=== PATIENT | female | born 1975 | race African-American/Black ===

== ENCOUNTER → 2016-07-08 | Outpatient (REF) | payer OTHER, SELFPAY ==
[~2016-07-08] MED LIST: ZANTTAB PO
== END ==
LOC: M LAB REF 14:04
PROVIDERS: ATTEND Family Medicine Addiction Medicine
DX: Z01.419 Encounter for gynecological examination (general) (routine) without abnormal findings (principal); R87.610 Atypical squamous cells of undetermined significance on cytologic smear of cervix (ASC-US)
CPT/HCPCS: 87491; 87591; G0123

== ENCOUNTER → 2016-10-21 | Outpatient (REF) | payer OTHER ==
[2016-10-21 14:01] LABS: ALBUMIN 3.9 GM/DL (3.2-5.2); ALBUMIN/GLOBULIN RATIO 0.93 (1.00-1.93); ALKALINE PHOSPHATASE 61 U/L (45-117); ALT/SGPT 18 U/L (12-78); ANION GAP 8 MEQ/L (8-16); AST/SGOT 13 U/L (15-37); BILIRUBIN,TOTAL 0.6 MG/DL (0.2-1.0); BLOOD UREA NITROGEN 13 MG/DL (7-18); CALCIUM LEVEL 8.5 MG/DL (8.5-10.1); CARBON DIOXIDE LEVEL 28 MEQ/L (21-32); CHLORIDE LEVEL 106 MEQ/L (98-107); CHOLESTEROL LEVEL 217 MG/DL (<200); GLOMERULAR FILTRATION RATE > 60.0 (>60); GLUCOSE, FASTING 87 MG/DL (70-105); SODIUM LEVEL 142 MEQ/L (136-145); TOTAL PROTEIN 8.1 GM/DL (6.4-8.2); TRIGLYCERIDES LEVEL 66 MG/DL (<150)
== END ==
LOC: M LAB REF 13:15
PROVIDERS: ATTEND Family Medicine Addiction Medicine
DX: I10 Essential (primary) hypertension (principal); Z23 Encounter for immunization

== ENCOUNTER → 2018-06-07 | Outpatient (CLI) | payer OTHER ==
--- NOTE | 2018-06-07 12:04 | REP ---
RIGHT FINGERS, FOUR VIEWS: HISTORY: Contusion. There is no acute fracture or dislocation. The joint spaces are normal in appearance. IMPRESSION: There is no acute fracture or dislocation. Electronically Signed by Kwame Martell MD 06/07/2018 12:12 P
== END ==
LOC: M WUC 09:06
PROVIDERS: ATTEND Physician Assistant
DX: S60.131A Contusion of right middle finger with damage to nail, initial encounter (principal); X58.XXXA Exposure to other specified factors, initial encounter; Y92.9 Unspecified place or not applicable

== ENCOUNTER → 2018-11-01 | Outpatient (REF) | payer OTHER ==
[~2018-11-01] MED LIST changes: +ZANT150T40 PO; -ZANTTAB PO
[2018-11-01 16:53] LABS: ALBUMIN 3.8 GM/DL (3.2-5.2); ALT/SGPT 21 U/L (12-78); BILIRUBIN,TOTAL 0.4 MG/DL (0.2-1.0); BLOOD UREA NITROGEN 18 MG/DL (7-18); CALCIUM LEVEL 8.8 MG/DL (8.5-10.1); CARBON DIOXIDE LEVEL 27 MEQ/L (21-32); CHLORIDE LEVEL 107 MEQ/L (98-107); CHOLESTEROL LEVEL 220 MG/DL (<200); CHOLESTEROL RISK RATIO 2.716 (<5); CREATININE FOR GFR 0.82 MG/DL (0.55-1.30); GLOMERULAR FILTRATION RATE > 60.0 (>58); GLUCOSE, FASTING 91 MG/DL (70-100); HDL CHOLESTEROL 81 MG/DL (>40); LDL CHOLESTEROL 129 MG/DL (<100); NON-HDL-C 139 MG/DL; POTASSIUM SERUM 3.9 MEQ/L (3.5-5.1); SODIUM LEVEL 138 MEQ/L (136-145); TOTAL PROTEIN 7.8 GM/DL (6.4-8.2); TRIGLYCERIDES LEVEL 49 MG/DL (<150)
[2018-11-01 17:15] LABS: TOTAL 25(OH) VITAMIN D 16.4 NG/ML (30.0-100.0)
[2018-11-01 17:33] LABS: BASO % 0.2 % (0.0-1.0); EOS # 0.2 10^3/uL (0.0-0.50); EOS % 4.5 % (0.0-3.0); HEMATOCRIT 39.8 % (36.0-47.0); HEMOGLOBIN 12.3 g/dl (12.0-15.5); LYMPH # 1.7 10^3/uL (1.5-4.5); LYMPH % 33.3 % (24.0-44.0); MEAN CORPUSCULAR HGB CONC 30.9 g/dl (32.0-36.5); MEAN CORPUSCULAR VOLUME 87.5 fl (80.0-96.0); MONO # 0.5 10^3/uL (0.0-0.8); MONO % 9.8 % (0.0-5.0); NEUTROPHILS # 2.7 10^3/uL (1.8-7.7); NEUTROPHILS % 51.8 % (36.0-66.0); PLATELET COUNT, AUTOMATED 325 10^3/uL (150-450); RED BLOOD COUNT 4.55 10^6/uL (4.00-5.40); WHITE BLOOD COUNT 5.1 10^3/uL (4.0-10.0)
== END ==
LOC: M LAB REF 12:28
PROVIDERS: ATTEND Nurse Practitioner Family
DX: Z00.01 Encounter for general adult medical examination with abnormal findings (principal)

== ENCOUNTER → 2019-02-22 | Outpatient (REF) | payer OTHER, MEDICAID ==
[2019-02-22 12:58] LABS: ALBUMIN 3.9 GM/DL (3.2-5.2); ALT/SGPT 19 U/L (12-78); BILIRUBIN,TOTAL 0.8 MG/DL (0.2-1.0); BLOOD UREA NITROGEN 10 MG/DL (7-18); CALCIUM LEVEL 9.3 MG/DL (8.5-10.1); CARBON DIOXIDE LEVEL 29 MEQ/L (21-32); CHLORIDE LEVEL 105 MEQ/L (98-107); CHOLESTEROL LEVEL 198 MG/DL (<200); CREATININE FOR GFR 0.82 MG/DL (0.55-1.30); GLOMERULAR FILTRATION RATE > 60.0 (>58); GLUCOSE, FASTING 89 MG/DL (70-100); HDL CHOLESTEROL 75 MG/DL (>40); LDL CHOLESTEROL 116 MG/DL (<100); NON-HDL-C 123 MG/DL; POTASSIUM SERUM 4.2 MEQ/L (3.5-5.1); SODIUM LEVEL 141 MEQ/L (136-145); TOTAL 25(OH) VITAMIN D 30.1 NG/ML (30.0-100.0); TOTAL PROTEIN 8.1 GM/DL (6.4-8.2); TRIGLYCERIDES LEVEL 35 MG/DL (<150)
[2019-02-22 13:14] LABS: HEMOGLOBIN A1c 5.8 %
== END ==
LOC: M LAB REF 12:07
PROVIDERS: ATTEND Nurse Practitioner Family
DX: Z00.01 Encounter for general adult medical examination with abnormal findings (principal); E55.9 Vitamin D deficiency, unspecified

== ENCOUNTER → 2019-05-04 | Outpatient (REF) | payer OTHER, MEDICAID | LOC: M LAB REF 13:10 | PROVIDERS: ATTEND Nurse Practitioner Family | DX: Z12.4 Encounter for screening for malignant neoplasm of cervix (principal) ==

== ENCOUNTER → 2019-11-16 | Outpatient (REF) | payer OTHER ==
[2019-11-17 19:22] LABS: AMORPHOUS SEDIMENT MODERATE (NEGATIVE); BACTERIA, URINE AUTO NEGATIVE (NEGATIVE); MUCUS, URINE LARGE (NEGATIVE); RBC, URINE AUTO 0 /HPF (0-3); SQUAMOUS EPITHELIAL CELL UR AU 0 /HPF (0-6); WBC, URINE AUTO 0 /HPF (0-3)
== END ==
LOC: M WUC 17:25
PROVIDERS: ATTEND Nurse Practitioner Family
DX: R30.0 Dysuria (principal)

== ENCOUNTER → 2020-05-09 | Outpatient (REF) | payer OTHER ==
[2020-05-09 17:10] LABS: BASO % 0.4 % (0.0-1.0); EOS # 0.2 10^3/uL (0.0-0.5); EOS % 1.5 % (0.0-3.0); HEMATOCRIT 41.4 % (36.0-47.0); HEMOGLOBIN 12.8 g/dl (12.0-15.5); LYMPH # 2.1 10^3/uL (1.5-5.0); LYMPH % 20.1 % (24.0-44.0); MEAN CORPUSCULAR HEMOGLOBIN 27.3 pg (27.0-33.0); MEAN CORPUSCULAR HGB CONC 30.9 g/dl (32.0-36.5); MEAN CORPUSCULAR VOLUME 88.3 fl (80.0-96.0); MONO # 0.9 10^3/uL (0.0-0.8); MONO % 8.4 % (2.0-8.0); NEUTROPHILS # 7.2 10^3/uL (1.5-8.5); NEUTROPHILS % 69.1 % (36.0-66.0); PLATELET COUNT, AUTOMATED 341 10^3/uL (150-450); RED BLOOD COUNT 4.69 10^6/uL (4.00-5.40); WHITE BLOOD COUNT 10.4 10^3/uL (4.0-10.0)
[2020-05-09 17:47] LABS: ALT/SGPT 26 U/L (12-78); BILIRUBIN,TOTAL 0.3 MG/DL (0.2-1.0); BLOOD UREA NITROGEN 10 MG/DL (7-18); CALCIUM LEVEL 9.4 MG/DL (8.5-10.1); CARBON DIOXIDE LEVEL 27 MEQ/L (21-32); CHLORIDE LEVEL 105 MEQ/L (98-107); CHOLESTEROL LEVEL 224 MG/DL (<200); CHOLESTEROL RISK RATIO 3.027 (<5); CREATININE FOR GFR 0.76 MG/DL (0.55-1.30); FREE T4 0.98 NG/DL (0.76-1.46); GLOMERULAR FILTRATION RATE > 60.0 (>58); GLUCOSE, FASTING 111 MG/DL (70-100); HCG, SERUM QUANTITATIVE 2396 MIU/ML; HDL CHOLESTEROL 74 MG/DL (>40); LDL CHOLESTEROL 142 MG/DL (<100); NON-HDL-C 150 MG/DL; POTASSIUM SERUM 4.7 MEQ/L (3.5-5.1); SODIUM LEVEL 137 MEQ/L (136-145); TOTAL 25(OH) VITAMIN D 19.4 NG/ML (30.0-100.0); TOTAL PROTEIN 8.1 GM/DL (6.4-8.2); TRIGLYCERIDES LEVEL 39 MG/DL (<150)
[2020-05-09 17:53] LABS: HEMOGLOBIN A1c 5.6 %
== END ==
LOC: M LAB REF 16:38
PROVIDERS: ATTEND Nurse Practitioner Family
DX: Z00.00 Encounter for general adult medical examination without abnormal findings (principal); Z33.1 Pregnant state, incidental; I10 Essential (primary) hypertension

== ENCOUNTER 2020-05-31 20:26 | Emergency (ER) | payer OTHER ==
[~2020-05-31] VITALS: Ht 165.1 cm; Wt 94.9 kg
[2020-05-31] MEDS ORDERED: NIFE10CA2 PO (20:41)
[2020-05-31] MEDS ORDERED: MM S100C PO (20:41)
[2020-05-31 21:29] LABS: BASO % 0.3 % (0.0-1.0); EOS # 0.1 10^3/uL (0.0-0.5); EOS % 1.3 % (0.0-3.0); HEMATOCRIT 39.7 % (36.0-47.0); HEMOGLOBIN 12.8 g/dl (12.0-15.5); LYMPH # 1.9 10^3/uL (1.5-5.0); LYMPH % 17.2 % (24.0-44.0); MEAN CORPUSCULAR HEMOGLOBIN 27.5 pg (27.0-33.0); MEAN CORPUSCULAR HGB CONC 32.2 g/dl (32.0-36.5); MEAN CORPUSCULAR VOLUME 85.4 fl (80.0-96.0); MONO % 9.2 % (2.0-8.0); NEUTROPHILS # 7.8 10^3/uL (1.5-8.5); NEUTROPHILS % 71.7 % (36.0-66.0); PLATELET COUNT, AUTOMATED 399 10^3/uL (150-450); RED BLOOD COUNT 4.65 10^6/uL (4.00-5.40); WHITE BLOOD COUNT 10.8 10^3/uL (4.0-10.0)
[2020-05-31] MEDS ORDERED: FAMOTIDINE INJ 20MG/2ML VIAL (S0028 PER 1) IVP ONE (21:35)
[2020-05-31] MEDS ORDERED: ONDANSETRON 4MG/2ML VIAL IV ONE (21:35)
[2020-05-31] MEDS ORDERED: NS 1,000 ML IV ONE (21:35)
[2020-05-31 22:16] LABS: ALBUMIN 3.8 GM/DL (3.2-5.2); BILIRUBIN,DIRECT 0.1 MG/DL (0.0-0.2); BILIRUBIN,TOTAL 0.3 MG/DL (0.2-1.0)
--- NOTE | 2020-05-31 22:29 | REPVR ---
PROCEDURE INFORMATION: Exam: US First Trimester, Transabdominal Exam date and time: 05/31/2020 9:58 PM Age: 44 years old Clinical indication: Lmp or gestational age (in weeks): 04/06/2020; Other: Abd pain; TECHNIQUE: Imaging protocol: Real-time transabdominal obstetrical ultrasound of the maternal pelvis and a first trimester , less than 14 weeks 0 days, with image documentation. COMPARISON: No relevant prior studies available. FINDINGS: Gestation: Gestational sac within the uterus with pole and yolk sac. Embryonic/ heart rate: heartbeat of 172 bpm. Placenta: Unremarkable. No subchorionic bleed. Amniotic fluid: Amniotic fluid is normal for gestational age. BIOMETRY: [place]-Rump length: The crown-rump length is 19 mm suggesting an age of 8 weeks 4 days. The EDC is 01/06/2021. MATERNAL: Uterus: Hypoechoic area in the left aspect of the uterine myometrium measuring 18 x 15 x 11 mm which may reflect a small fibroid. Cervix: Unremarkable. Right adnexa: The right ovary measures 4.3 x 2.2 x 2.8 cm and demonstrates arterial and venous blood flow. Left adnexa: The left ovary is not seen. Intraperitoneal space: No intraperitoneal free fluid. IMPRESSION: 1. Single live intrauterine fetus with an estimated age of 8 weeks 4 days. The EDC is 01/06/2021. 2. Question of small left uterine fibroid measuring 18 x 15 x 11 mm. Electronically signed by: Gurjit Perez On 05/31/2020 22:29:57 PM
[2020-05-31] MEDS ORDERED: SUCRALFATE 1 GM TAB PO ONE (22:40)
[2020-05-31] MEDS ORDERED: ONDA4TAB6 PO (23:58)
[2020-05-31] MEDS ORDERED: FAMO20TA PO (23:58)
[2020-05-31] MEDS ORDERED: SUCR1SS PO (23:58)
[2020-06-01 00:09] VITALS: BP 141/86
== END 2020-06-01 00:34 | disposition home or self-care (01) ==
LOC: M ED 20:26
DX: O99.611 Diseases of the digestive system complicating pregnancy, first trimester (principal); K21.9 Gastro-esophageal reflux disease without esophagitis; Z3A.08 8 weeks gestation of pregnancy
CPT/HCPCS: 76801; 80047; 80076; 81001; 83690; 84702; 85025; 87086; 93976; 96361; 96374; 96375; 99284; J2405

== ENCOUNTER → 2020-07-24 | Outpatient (CLI) | payer OTHER ==
[~2020-07-24] MED LIST changes: +FAMO20TA PO; +MM S100C PO; +NIFE10CA2 PO; +ONDA4TAB6 PO; +SUCR1SS PO
== END ==
LOC: M PLALAB 09:20
PROVIDERS: ATTEND Specialist
DX: O28.5 Abnormal chromosomal and genetic finding on antenatal screening of mother (principal); Z3A.00 Weeks of gestation of pregnancy not specified

== ENCOUNTER → 2020-08-18 | Outpatient (CLI) | payer OTHER ==
--- NOTE | 2020-08-18 11:19 | REP ---
INDICATION: ANATOMY COMPARISON: None. TECHNIQUE: Transabdominal obstetrical ultrasound with color Doppler evaluation. FINDINGS: Examination demonstrates a single live intrauterine in breech presentation. motion is identified by technologist. Placenta is noted posterior and grade without evidence for placenta previa or abruption. Amniotic fluid volume is normal. Cervix measures 3.8 cm in length and appears closed.. Selected gestational age: 20 weeks 1 day with SANTA 01/04/2021. Gestational age by current measurements 19 weeks 6 days with SANTA 01/06/2021. FHR equals 146 beats per minute. Estimated weight 303 grams (20thpercentile). Anatomical assessment demonstrates normal structures including cranium, choroid plexus, cavum, cerebellum/posterior fossa, facial features, lungs, diaphragm, stomach, cord insertion/three-vessel cord, kidneys/bladder, spine, and extremities. IMPRESSION: Single live intrauterine in breech presentation demonstrating appropriate interval growth. Limited evaluation of the heart/ventricular outflow tracts. Remainder of the anatomical assessment is complete and normal. <Electronically signed by Priyank Griffin > 08/18/20 [id number]
== END ==
LOC: M WHC 08:21
PROVIDERS: ATTEND Advanced Practice Midwife
DX: Z34.82 Encounter for supervision of other normal pregnancy, second trimester (principal)

== ENCOUNTER → 2020-09-16 | Outpatient (CLI) | payer OTHER ==
--- NOTE | 2020-09-16 13:06 | REP ---
INDICATION: F/U ANATOMY COMPARISON: 08/18/2020 TECHNIQUE: Transabdominal obstetrical ultrasound with color Doppler evaluation. FINDINGS: Examination demonstrates a single live intrauterine in cephalic presentation. motion is identified by technologist. Placenta is noted posterior and grade 1 without evidence for placenta previa or abruption. Amniotic fluid volume is normal. Cervix measures 4.5 cm in length and appears closed.. Selected gestational age: Twenty-four weeks 2 days with SANTA 01/04/2021. Gestational age by current measurements 24 weeks 3 days with SANTA 01/03/2021. FHR equals 153 beats per minute. Estimated weight 631 grams (60thpercentile). Anatomical assessment demonstrates normal structures including cranium, choroid plexus, cavum, cerebellum/posterior fossa, facial features, lungs, four-chamber heart/ventricular outflow tracts, diaphragm, stomach, cord insertion/three-vessel cord, kidneys/bladder, and extremities. IMPRESSION: Single live intrauterine in cephalic presentation demonstrating appropriate estimated weight. In conjunction with prior examination anatomical assessment is complete and normal. <Electronically signed by Priyank Griffin > 09/16/20 [id number]
== END ==
LOC: M WHC 11:56
PROVIDERS: ATTEND Specialist
DX: Z34.82 Encounter for supervision of other normal pregnancy, second trimester (principal); Z3A.24 24 weeks gestation of pregnancy

== ENCOUNTER → 2020-10-17 | Outpatient (CLI) | payer OTHER ==
[~2020-10-17] MED LIST changes: +AMBI5TAB PO; +ASPI81CH33 PO; +COLA100C5 PO; +IBUP80TA PO; +LABE100T4 PO; +NIFE1TAB52 PO; +NOXI1TAB PO; +PERCOCET PO; +PRENTAB9 PO; +ZOLO50TA PO
[2020-10-17 12:34] LABS: HEMATOCRIT 36.3 % (36.0-47.0); HEMOGLOBIN 11.3 g/dl (12.0-15.5); MEAN CORPUSCULAR HEMOGLOBIN 27.9 pg (27.0-33.0); MEAN CORPUSCULAR HGB CONC 31.1 g/dl (32.0-36.5); MEAN CORPUSCULAR VOLUME 89.6 fl (80.0-96.0); PLATELET COUNT, AUTOMATED 307 10^3/uL (150-450); RED BLOOD COUNT 4.05 10^6/uL (4.00-5.40); WHITE BLOOD COUNT 9.9 10^3/uL (4.0-10.0)
== END ==
LOC: M LAB 09:56
PROVIDERS: ATTEND Specialist
DX: Z34.82 Encounter for supervision of other normal pregnancy, second trimester (principal)

== ENCOUNTER 2020-10-29 18:36 | Outpatient (CLI) | payer OTHER ==
[~2020-10-29] VITALS: Ht 165.1 cm; Wt 97.6 kg
[2020-10-29] VITALS (15 sets, daily range): BP systolic 129–145; BP diastolic 67–80
[~2020-10-29 18:36] MED LIST changes: -AMBI5TAB PO; -ASPI81CH33 PO; -COLA100C5 PO; -IBUP80TA PO; -LABE100T4 PO; -NIFE1TAB52 PO; -NOXI1TAB PO; -PERCOCET PO; -PRENTAB9 PO; -ZOLO50TA PO
[2020-10-29] MEDS ORDERED: PRENTAB9 PO (19:16)
[2020-10-29] MEDS ORDERED: ASPI81CH33 PO (19:16)
[2020-10-29] MEDS ORDERED: NOXI1TAB PO (19:16)
[2020-10-29] MEDS ORDERED: LABE100T4 PO (19:16)
[2020-10-29] MEDS ORDERED: ACETAMINOPHEN 500 MG TAB PO ONE (19:30)
[2020-10-29 19:56] LABS: HEMATOCRIT 31.7 % (36.0-47.0); HEMOGLOBIN 10.4 g/dl (12.0-15.5); MEAN CORPUSCULAR HEMOGLOBIN 28.6 pg (27.0-33.0); MEAN CORPUSCULAR HGB CONC 32.8 g/dl (32.0-36.5); MEAN CORPUSCULAR VOLUME 87.1 fl (80.0-96.0); PLATELET COUNT, AUTOMATED 280 10^3/uL (150-450); RED BLOOD COUNT 3.64 10^6/uL (4.00-5.40); WHITE BLOOD COUNT 9.1 10^3/uL (4.0-10.0)
[2020-10-29 20:24] LABS: ALT/SGPT 20 U/L (12-78); BILIRUBIN,TOTAL 0.3 MG/DL (0.2-1.0); CREATININE FOR GFR 0.74 MG/DL (0.55-1.30); GLOMERULAR FILTRATION RATE > 60.0 (>58); LDH LACTATE DEHYDROGENASE 148 U/L (84-246)
[2020-10-29 21:25] LABS: TOTAL PROTEIN,RANDOM URINE 52.7 MG/DL (0.0-12.0)
--- NOTE | 2020-10-29 23:57 | IPN ---
PROGRESS NOTE DATE: 10/29/2020 SUBJECTIVE: Stepan is a 44-year-old 4, para 0, 2, 1, 2, at 30 and 3/7 weeks, EDC of 01/04/2021 based on first trimester ultrasound, she presents to labor and delivery today with report of elevated blood pressure at home. She has been checking her blood pressure. She did see her primary care provider and was told she had proteinuria and she had to come to the hospital. She does report a mild headache. Denies vaginal bleeding, leakage of fluid or contractions. The fetus has been active. [facility] in the first trimester. course complicated by advanced maternal age. She did undergo panorama which returned a male fetus, low risk for anueploidy. She has chronic hypertension. Labetalol 200 mg p.o. b.i.d., aspirin 81 mg. History of deliveries due to gestational hypertension. OBSTETRIC LABS: O+. Antibody screen negative. Syphilis negative. Gonorrhea and Chlamydia negative. Hepatitis B negative. Hepatitis C negative. HIV negative. Rubella immune. She never had her glucose challenge test. OBSTETRIC HISTORY: On 01/25/2008 at 36 weeks; 6 pound male, primary section due to gestational hypertension preeclampsia. #2; elective termination of . #3; 07/02/2014 at 33 weeks; 3 pound female; repeat section, gestational hypertension. PAST MEDICAL HISTORY: Gestational hypertension, chronic hypertension, anemia. PAST SURGICAL HISTORY: section x2. FAMILY HISTORY: Diabetes, hypertension. SOCIAL HISTORY: Patient is a student. Her partner is at bedside. She is a nonsmoker. Denies alcohol or drug use. No history of any sexually transmitted infections. She denies history of abuse; physical, sexual and emotional. ALLERGIES: No known drug allergies. OBJECTIVE: Temperature 98.3, pulse 85, respirations 18, blood pressure 138/75. She is alert and oriented x3. heart rate 140 with moderate variability; appropriate for gestational age. There is no pattern of contractions. Sterile vaginal exam deferred. She does have +1 pitting edema bilaterally. LABORATORY DATA UPON REVIEW: Spot urine 0.14 today. Hemoglobin 10.4, hematocrit 31.7, platelets 280,000. Preeclamptic labs are stable. Uric acid 5. LDH 148. ALT 20, AST 15 and creatinine 0.74. ASSESSMENT: Intrauterine at 30 weeks 3 days. heart rate is appropriate for gestational age. Stable chronic hypertension. PLAN: Discharge the patient to home. I did review the importance of contacting her obstetric provider related to blood pressure issues during her and not to seek care at her primary care provider. I reviewed signs and symptoms of labor, movement counts, danger signs related to preeclampsia, access to her care provider. She is scheduled to see myself on Tuesday and was advised to keep that appointment. She and her partner's questions have been answered and they do desire discharge home. SERJIO
== END 2020-10-29 22:33 | disposition home or self-care (01) ==
LOC: M LDO 18:36
PROVIDERS: ATTEND Advanced Practice Midwife
DX: O09.523 Supervision of elderly multigravida, third trimester (principal); Z3A.30 30 weeks gestation of pregnancy

== ENCOUNTER → 2020-11-03 | Outpatient (REF) | payer OTHER ==
[~2020-11-03] MED LIST changes: +ASPI81CH33 PO; +LABE100T4 PO; +NOXI1TAB PO; +PRENTAB9 PO
== END ==
LOC: M PLALAB 09:32
PROVIDERS: ATTEND Advanced Practice Midwife
DX: Z53.20 Procedure and treatment not carried out because of patient's decision for unspecified reasons (principal)

== ENCOUNTER → 2020-11-05 | Outpatient (CLI) | payer OTHER | LOC: M LAB 07:21 | PROVIDERS: ATTEND Specialist | DX: O10.019 Pre-existing essential hypertension complicating pregnancy, unspecified trimester (principal); Z3A.00 Weeks of gestation of pregnancy not specified ==

== ENCOUNTER → 2020-11-07 | Outpatient (CLI) | payer OTHER ==
--- NOTE | 2020-11-07 10:51 | REP ---
INDICATION: BPP HYPERTENSION COMPARISON: 09/16/2020 TECHNIQUE: Transabdominal obstetrical ultrasound with color Doppler evaluation. FINDINGS: Examination demonstrates a single live intrauterine in cephalic presentation. motion is identified by technologist. Placenta is noted posterior and grade 2 without evidence for placenta previa or abruption. Amniotic fluid volume is normal. Cervix measures 4.0 cm in length and appears closed.. Selected gestational age: Thirty-one weeks 5 days with SANTA 01/04/2021. Gestational age by current measurements 31 weeks 6 days with SANTA 01/03/2021. FHR equals 150 beats per minute. Estimated weight 1821 grams (38thpercentile). DEXTER: 10.2 cm (8.7-24.1) Umbilical artery SD ratio: 2.87 (1.86-3.90) Biophysical profile score: 8/8 IMPRESSION: Single live advanced gestation in cephalic presentation. Satisfactory growth. Normal biophysical profile score and amniotic fluid volume. <Electronically signed by Priyank Griffin > 11/07/20 [id number]
--- NOTE | 2020-11-07 11:19 | REP ---
INDICATION: BPP HYPERTENSION COMPARISON: 09/16/2020 TECHNIQUE: Transabdominal obstetrical ultrasound with color Doppler evaluation. FINDINGS: Examination demonstrates a single live intrauterine in cephalic presentation. motion is identified by technologist. Placenta is noted posterior and grade 2 without evidence for placenta previa or abruption. Amniotic fluid volume is normal. Cervix measures 4.0 cm in length and appears closed.. Selected gestational age: 31 weeks 5 days with SANTA 01/04/2021. Gestational age by current measurements 30 weeks 5 days with SANTA 01/11/2021. FHR equals 150 beats per minute. Estimated weight 1821 grams (38thpercentile). DEXTER: 10.2 cm Umbilical artery SD ratio: 2.87 Biophysical profile score: 8/8 IMPRESSION: Single live intrauterine in cephalic presentation demonstrating appropriate estimated weight and growth. Amniotic fluid volume and biophysical profile score are normal. <Electronically signed by Priyank Griffin > 11/07/20 [id number]
== END ==
LOC: M WHC 09:54
PROVIDERS: ATTEND Advanced Practice Midwife
DX: O10.013 Pre-existing essential hypertension complicating pregnancy, third trimester (principal); Z3A.31 31 weeks gestation of pregnancy

== ENCOUNTER → 2020-11-14 | Outpatient (CLI) | payer OTHER ==
--- NOTE | 2020-11-14 09:33 | REP ---
INDICATION: BPP HYPERTENSION COMPARISON: 11/07/2020 TECHNIQUE: Transabdominal obstetrical ultrasound with color Doppler evaluation. FINDINGS: Examination demonstrates a single live intrauterine in cephalic presentation. motion is identified by technologist. Placenta is noted posterior and grade 2 without evidence for placenta previa or abruption. Amniotic fluid volume is normal. Selected gestational age: 32 weeks 5 days with SANTA 01/04/2021. FHR equals 139 beats per minute. DEXTER: 12.3 cm Umbilical artery SD ratio: 2.80 (1.80-3.80) Biophysical profile score: 8/8 IMPRESSION: Single live intrauterine in cephalic presentation demonstrating appropriate amniotic fluid index and biophysical profile score. <Electronically signed by Priyank Griffin > 11/14/20 [id number]
== END ==
LOC: M WHC 08:29
PROVIDERS: ATTEND Advanced Practice Midwife
DX: O10.019 Pre-existing essential hypertension complicating pregnancy, unspecified trimester (principal); Z3A.32 32 weeks gestation of pregnancy

== ENCOUNTER → 2020-11-18 | Outpatient (CLI) | payer OTHER ==
[2020-11-18 15:20] LABS: HEMATOCRIT 37.8 % (36.0-47.0); HEMOGLOBIN 12.2 g/dl (12.0-15.5); MEAN CORPUSCULAR HEMOGLOBIN 28.6 pg (27.0-33.0); MEAN CORPUSCULAR HGB CONC 32.3 g/dl (32.0-36.5); MEAN CORPUSCULAR VOLUME 88.7 fl (80.0-96.0); PLATELET COUNT, AUTOMATED 300 10^3/uL (150-450); RED BLOOD COUNT 4.26 10^6/uL (4.00-5.40); WHITE BLOOD COUNT 9.7 10^3/uL (4.0-10.0)
[2020-11-18 15:44] LABS: TOTAL PROTEIN,RANDOM URINE 21.7 MG/DL (0.0-12.0)
[2020-11-18 15:49] LABS: ALT/SGPT 25 U/L (12-78); BILIRUBIN,TOTAL 0.3 MG/DL (0.2-1.0); GLOMERULAR FILTRATION RATE > 60.0 (>58); LDH LACTATE DEHYDROGENASE 162 U/L (84-246); URIC ACID 4.4 MG/DL (2.6-6.0)
== END ==
LOC: M PLALAB 13:48
PROVIDERS: ATTEND Obstetrics & Gynecology
DX: O10.913 Unspecified pre-existing hypertension complicating pregnancy, third trimester (principal); Z3A.00 Weeks of gestation of pregnancy not specified

== ENCOUNTER 2020-11-20 03:06 | Inpatient (IN) | payer OTHER ==
[2020-11-20] VITALS (43 sets, daily range): BP systolic 85–234; BP diastolic 42–124
[~2020-11-20] VITALS: Ht 165.1 cm; Wt 97.8 kg
[2020-11-20 06:24] LABS: BASO % 0.4 % (0.0-1.0); EOS # 0.2 10^3/uL (0.0-0.5); EOS % 1.5 % (0.0-3.0); HEMATOCRIT 34.3 % (36.0-47.0); HEMOGLOBIN 11.1 g/dl (12.0-15.5); LYMPH # 1.7 10^3/uL (1.5-5.0); LYMPH % 16.5 % (24.0-44.0); MEAN CORPUSCULAR HEMOGLOBIN 28.4 pg (27.0-33.0); MEAN CORPUSCULAR HGB CONC 32.4 g/dl (32.0-36.5); MEAN CORPUSCULAR VOLUME 87.7 fl (80.0-96.0); MONO % 9.6 % (2.0-8.0); NEUTROPHILS # 7.4 10^3/uL (1.5-8.5); NEUTROPHILS % 71.3 % (36.0-66.0); PLATELET COUNT, AUTOMATED 202 10^3/uL (150-450); RED BLOOD COUNT 3.91 10^6/uL (4.00-5.40); WHITE BLOOD COUNT 10.4 10^3/uL (4.0-10.0)
[2020-11-20] MEDS ORDERED: hydrALAZINE 20MG/ML 1ML VIAL (J0360 PER 20MG) IV STA ×2 (06:28→09:05)
[2020-11-20] MEDS ORDERED: MAG Sulf (L&D) 4 GM/100 ML 4 GM in IV 1 EA IV ONE (06:30)
[2020-11-20] MEDS ORDERED: D5W/LR 1,000 ML IV SCH (06:30)
[2020-11-20] MEDS: MAG Sulf (OBGYN) 20GM/500ML 20,000 MG in IV 1 EA IV SCH ×2 (06:43→16:30)
--- NOTE | 2020-11-20 06:43 | HPE ---
HISTORY AND PHYSICAL DATE OF ADMISSION: 11/20/2020 HISTORY OF PRESENT ILLNESS: Stepan is a 44-year-old 4 para 0-2-1-2 at 33 and 4/7th weeks gestation with an EDC of 01/04/21 based on first trimester ultrasound. She presents to Labor and Delivery today for a complaint of vaginal bleeding. She awoke at 0300 and had a large gush of blood and then immediately presented to Labor and Delivery. She does report some cramping, continued vaginal bleeding, denies leakage of fluid. The last movement that she has recalled was at 1900 on 11/19/2020. [facility] in the first trimester. Her course was complicated by advanced maternal age. She did undergo panoramic testing and had low risk for aneuploidy, male fetus, chronic hypertension, she was taking Labetalol 200 mg p.o. b.i.d. aspirin 81 mg daily. She had been undergoing antepartal testing which had been reassuring. She has a history of gestational hypertension and severe range preeclampsia, prior section x2. OBSTETRIC HISTORY: On 01/25/2008, 36 weeks gestation, a 6 pound male, primary section due to gestational hypertension, preeclampsia, and elective termination of , date not reported, July 05, 2014, 33 weeks, 3 pound female, repeat section due to gestational hypertension. OBSTETRIC LABS: O positive, antibody screen negative. Syphilis is nonreactive, gonorrhea and chlamydia negative, hepatitis B surface antigen is negative, hepatitis C antibody nonreactive. HIV is nonreactive. Rubella immune. Gestational diabetic screening 134. A three hour glucose tolerance test is normal, fasting is 79, one hour is 159, 2 hour 161, and 3 hour 115. GBS is unknown. Urine culture is contaminated. Most recent preeclamptic profile on 10/29/20 with uric acid of 5, AST 15, ALT 20, LDH 148. PAST MEDICAL HISTORY: Gestational hypertension, preeclampsia, anemia. PAST SURGICAL HISTORY: section x2, family history of diabetes and hypertension. SOCIAL HISTORY: The patient's partner is at bedside and supportive. She is a nonsmoker. She denies alcohol and drug use. She denies a history of sexually transmitted infections and denies a history of abuse, physical, sexual and emotional. ALLERGIES: No known drug allergies. CURRENT MEDICATIONS: Labetalol 200 mg p.o. b.i.d., aspirin 81 mg, vitamin. ALLERGIES: No known drug allergies. OBJECTIVE: Formal set of vital signs have not been taken. I was called to bedside as there was no heart detected with external monitoring. Bedside ultrasound performed by myself demonstrates intrauterine demise. No heart rate detected. Confirmation ultrasound was ordered, heart rate 0, posterior placenta, no previa, no abruption observed. Sterile vaginal exam deferred at this time. ASSESSMENT: Intrauterine at 33 and 4/7th weeks, intrauterine demise. PLAN: Admit the patient to Labor and Delivery, saline lock at this time, NPO diet at this time, laboratories including demise panel, I reviewed the options with the patient of staying for delivery of her fetus versus going home and returning for planned scheduled delivery. The patient desires to stay. At this time mode of delivery is uncertain due to her two prior sections, per consult with Dr. Monika Bennett, likely will be a repeat section. Provider assuming care of this patient will make final plan for delivery. The patient seems appropriate and upset with this news.
--- NOTE | 2020-11-20 07:03 | REPVR ---
PROCEDURE INFORMATION: Exam: US , Limited Exam date and time: 11/20/2020 5:01 AM Age: 44 years old Clinical indication: Pain; Other: demise; Gestational age or lmp: 32; ; Additional info: Confirm intrauterine demise, ? placental abruption TECHNIQUE: Imaging protocol: Real-time ultrasound of the maternal uterus with image documentation. Exam focused on the clinical indication. COMPARISON: US OBS FOLLOW UP OR REPEAT 09/16/2020 12:17 PM FINDINGS: Gestation: Single intrauterine is seen. presentation: Vertex presentation is noted. heart rate: No heart rate is detected. Placenta: The placenta is posterior. The placenta is significantly heterogeneous with no obvious focal detachment Amniotic fluid index: The amniotic fluid index is low at 6 centimetres. MATERNAL: Right adnexa: The right adnexa is obscured. Left adnexa: The left adnexa is obscured. IMPRESSION: 1. No heart rate detected suggestive demise. 2. Markedly heterogeneous placenta but with no focal detachment to suggest abruption. 3. Oligohydramnios. Electronically signed by: Ranjit Brower On 11/20/2020 07:03:03 AM
[2020-11-20 07:19] LABS: ALT/SGPT 30 U/L (12-78); BILIRUBIN,TOTAL 0.9 MG/DL (0.2-1.0); CREATININE FOR GFR 0.74 MG/DL (0.55-1.30); GLOMERULAR FILTRATION RATE > 60.0 (>58); LDH LACTATE DEHYDROGENASE 414 U/L (84-246); THYROXINE (T4) 11.4 UG/DL (4.5-12.0); URIC ACID 5.5 MG/DL (2.6-6.0)
[2020-11-20] MEDS ORDERED: LIDOCAINE 2% 5ML JELLY UROJET TOP PRN (07:40)
[2020-11-20] MEDS ORDERED: NIFEdipine 10 MG CAP PO STA (08:03)
[2020-11-20] MEDS ORDERED: hydrALAZINE 20MG/ML 1ML VIAL (J0360 PER 20MG) IV ONE (08:10)
[2020-11-20] MEDS: LABETALOL 200 MG TAB PO SCH ×3 (08:18→21:00)
[2020-11-20 08:47] LABS: TOTAL PROTEIN,RANDOM URINE 476.5 MG/DL (0.0-12.0)
[2020-11-20 09:23] LABS: HEMATOCRIT 31.3 % (36.0-47.0); HEMOGLOBIN 10.3 g/dl (12.0-15.5); MEAN CORPUSCULAR HEMOGLOBIN 28.5 pg (27.0-33.0); MEAN CORPUSCULAR HGB CONC 32.9 g/dl (32.0-36.5); MEAN CORPUSCULAR VOLUME 86.5 fl (80.0-96.0); PLATELET COUNT, AUTOMATED 175 10^3/uL (150-450); RED BLOOD COUNT 3.62 10^6/uL (4.00-5.40); WHITE BLOOD COUNT 10.9 10^3/uL (4.0-10.0)
[2020-11-20 09:34] LABS: INR 1.33; PROTHROMBIN TIME 16.9 SECONDS (12.7-14.5)
[2020-11-20 09:35] LABS: PARTIAL THROMBOPLASTIN TIME 36.8 SECONDS (25.9-37.0)
[2020-11-20] MEDS ORDERED: OXYTOCIN 30 UNITS IN 0.9% NaCl 500ML IV BAG (J2590) As Ordered ONE ×2 (09:54→11:52)
[2020-11-20] MEDS ORDERED: MORPHINE PRES-FREE INJ 10 MG/10 ML VIAL (J2274) As Ordered ONE (09:55)
[2020-11-20] MEDS ORDERED: ceFAZolin SOD 2 GM in IV 1 EA IV ONE (10:00)
[2020-11-20] MEDS ORDERED: CARBOPROST TROMETHAMINE 250 MCG/ML AMP IM PRN (10:00)
[2020-11-20] MEDS ORDERED: AZITHROMYCIN INJ 500 MG, VIAL MATE ADAPTER 1 EACH in NS 250 ML IV ONE (10:00)
[2020-11-20] MEDS ORDERED: BICITRA 30ML SOLN UDC PO ONE (10:00)
[2020-11-20] MEDS ORDERED: TRANEXAMIC ACID INJection 1,000 MG in NS 100 ML IV PRN (10:00)
[2020-11-20] MEDS ORDERED: fentaNYL 100 MCG/2 ML INJECTION (J3010) As Ordered ONE (10:01)
[2020-11-20] MEDS ORDERED: MIDAZOLAM INJ 2MG/2ML VIAL (J2250 PER 1MG) As Ordered ONE (10:02)
[2020-11-20] MEDS ORDERED: AZITHROMYCIN INJ 500MG VIAL (J0456 PER 500MG) As Ordered ONE (10:04)
[2020-11-20] MEDS ORDERED: ceFAZolin 2 GM/D5W 50 ML IV BAG (J0690 PER 500MG) As Ordered ONE (10:05)
--- NOTE | 2020-11-20 10:10 | IPNPDOC ---
Obstetrical Progress Note Date of Service Nov 20, 2020 Subjective 44yo at 33+4 weeks who presented earlier this morning with complaints of new onset vaginal bleeding, PETERSEN since yesterday (pt said she was stressed yesterday), and absent movement since yesterday evening. Evaluation upon her presentation revealed severe range blood pressures and US evidence of demise. She was immediately treated with antihypertensives, and magnesium sulfate was started. Blood pressures since admission have remained difficult to control with repetitive dosing of antihypertensives. States she feels "poorly" and does have a headache. She has had a mild to moderate amount of vaginal bleeding since she's been here. Over the last hour, she has passed blood clots and is starting to feel lower abdominal / uterine contractions and generalized abdominal pain. Earlier this week, as indicated in her PN record, her labetalol dosing was increased to 200mg TID because her BP in the office was nearing severe range. She was asymptomatic at that time. Antepartum testing was reassuring (modified BPP) during her PN appointment. Given that her clinical status is deteriorating due to the pre-eclampsia w/ severe features, bleeding/placental abruption, I recommended proceeding with urgent RLTCS. She had originally requested TOLAC for this situation, but I have explained to her that I feel this is an unsafe option. She has agreed to proceed with RLTCS. Preparations for the OR are being made. Informed consent obtained. Objective Vital Signs Date Time Temp Pulse Resp B/P (MAP) Pulse Ox O2 Delivery O2 Flow Rate FiO2 11/20/20 09:08 184/106 11/20/20 08:59 86 184/106 (132) 11/20/20 08:44 88 171/95 (120) 11/20/20 08:36 180/95 11/20/20 08:35 90 168/90 (116) 11/20/20 08:29 93 180/95 (123) 11/20/20 08:18 90 144/88 11/20/20 08:02 90 144/88 (106) 11/20/20 07:46 83 157/93 (114) 11/20/20 07:36 85 164/92 (116) 11/20/20 07:26 85 169/99 (122) 11/20/20 07:16 94 176/101 (126) 11/20/20 07:06 86 176/107 (130) 11/20/20 07:00 171/106 11/20/20 06:56 82 171/106 (127) 11/20/20 06:46 76 173/110 (131) 11/20/20 06:33 199/112 11/20/20 06:27 67 199/112 (141) 11/20/20 06:08 98.3 65 234/124 (160) Laboratory Tests 11/20/20 05:03: Serology Scanned Report Hepatitis B Testing 11/20/20 06:13: White Blood Count 10.4H, Red Blood Count 3.91L, Hemoglobin 11.1L, Hematocrit 34.3L, Mean Corpuscular Volume 87.7, Mean Corpuscular Hemoglobin 28.4, Mean Corpuscular Hemoglobin Concent 32.4, Red Cell Distribution Width 13.2, Platelet Count 202, Immature Granulocyte % (Auto) 0.7, Neutrophils (%) (Auto) 71.3H, Lymphocytes (%) (Auto) 16.5L, Monocytes (%) (Auto) 9.6H, Eosinophils (%) (Auto) 1.5, Basophils (%) (Auto) 0.4, Neutrophils # (Auto) 7.4, Lymphocytes # (Auto) 1.7, Monocytes # (Auto) 1.0H, Eosinophils # (Auto) 0.2, Basophils # (Auto) 0.0, Nucleated Red Blood Cells % (auto) 0.0, Creatinine 0.74, Glomerular Filtration Rate > 60.0, Uric Acid 5.5, Total Bilirubin 0.9#, Aspartate Amino Transf (AST/SGOT) 49H, Alanine Aminotransferase (ALT/SGPT) 30, Lactate Dehydrogenase 41 4H, Thyroid Stimulating Hormone (TSH) 4.480H, Thyroxine (T4) 11.4, Syphilis Serology NONREACTIVE 11/20/20 06:29: Urine Random Creatinine 292.0, Urine Random Total Protein 476.5H 11/20/20 06:52: Lupus Anticoag DRVVT Screen Ratio [Pending], Tpwv-opqa-5-Glycoprotein I IgG Ab [Pending], Gcun-cjxx-4-Glycoprotein I IgA Ab [Pending], Ssms-welv-8-Glycoprotein I IgM Ab [Pending], Anti-Cardiolipin IgG Antibody [Pending], Anti-Cardiolipin IgA Antibody [Pending], Anti-Cardiolipin IgM Antibody [Pending], Parvovirus IgG Antibody [Pending], Parvovirus (B19) IgM Antibody [Pending] 11/20/20 07:49: Drug Analysis [Pending] 11/20/20 09:09: White Blood Count 10.9H, Red Blood Count 3.62L, Hemoglobin 10.3L, Hematocrit 31.3L, Mean Corpuscular Volume 86.5, Mean Corpuscular Hemoglobin 28.5, Mean Corpuscular Hemoglobin Concent 32.9, Red Cell Distribution Width 13.1, Platelet Count 175, Nucleated Red Blood Cells % (auto) 0.0, Prothrombin Time 16.9H, Prothromb Time International Ratio 1.33, Activated Partial Thromboplast Time 36.8, Fibrinogen 117L, Sodium Level [Pending], Potassium Level [Pending], Chloride Level [Pending], Carbon Dioxide Level [Pending], Anion Gap [Pending], Blood Urea Nitrogen [Pending], Creatinine [Pending], Fasting Glucose [Pending], Uric Acid [Pending], Calcium Level [Pending], Total Bilirubin [Pending], Aspartate Amino Transf (AST/SGOT) [Pending], Alanine Aminotransferase (ALT/SGPT) [Pending], Alkaline Phosphatase [Pending], Lactate Dehydrogenase [Pending], Total Protein [Pending], Albumin [Pending], Albumin/Globulin Ratio [Pending] Current Medications Medications (Trade) Dose Ordered Sig/Miya Route PRN Reason Start Time Stop Time Status Last Admin Dose Admin Labetalol HCl (Normodyne, Trandate) 200 mg TID PO 11/20/20 09:00 11/20/20 08:18 200 MG Magnesium Sulfate 13674 mg/IV Miscellaneous Supplies 500 ml @ 50 mls/hr Q10H IV 11/20/20 06:30 11/20/20 06:43 50 MLS/HR Vital Signs Date Time Temp Pulse Resp B/P (MAP) Pulse Ox O2 Delivery O2 Flow Rate FiO2 11/20/20 09:08 184/106 11/20/20 08:59 86 11/20/20 06:08 98.3 ELY MATAMOROS DO Nov 20, 2020 10:10
[2020-11-20] MEDS ORDERED: NALBUPHINE HCL 10 MG/ML AMP (J2300) IV PRN ×2 (10:24→12:40)
[2020-11-20] MEDS ORDERED: diphenhydrAMINE 50MG/ML VIAL (J1200) IV PRN (10:24)
[2020-11-20] MEDS ORDERED: METOCLOPRAMIDE INJ 10MG/2ML VIAL (J2765 PER 1) IV PRN (10:24)
[2020-11-20] MEDS ORDERED: NALOXONE INJ 0.4MG/1ML VIAL (J2310 PER 1MG) IV PRN ×2 (10:24)
[2020-11-20] MEDS ORDERED: ONDANSETRON 4MG/2ML VIAL IV PRN ×3 (10:24→12:40)
[2020-11-20] MEDS ORDERED: ONDANSETRON 4MG/2ML VIAL As Ordered ONE (10:38)
[2020-11-20] MEDS ORDERED: KETOROLAC 60MG 2ML VIAL As Ordered ONE (10:38)
[2020-11-20 10:45] LABS: ALBUMIN 2.9 GM/DL (3.2-5.2); ALT/SGPT 28 U/L (12-78); BILIRUBIN,TOTAL 0.9 MG/DL (0.2-1.0); BLOOD UREA NITROGEN 15 MG/DL (7-18); CALCIUM LEVEL 9.1 MG/DL (8.5-10.1); CARBON DIOXIDE LEVEL 20 MEQ/L (21-32); CHLORIDE LEVEL 106 MEQ/L (98-107); CREATININE FOR GFR 0.76 MG/DL (0.55-1.30); GLOMERULAR FILTRATION RATE > 60.0 (>58); GLUCOSE, FASTING 81 MG/DL (70-100); LDH LACTATE DEHYDROGENASE 298 U/L (84-246); POTASSIUM SERUM 4.1 MEQ/L (3.5-5.1); SODIUM LEVEL 136 MEQ/L (136-145); TOTAL PROTEIN 6.8 GM/DL (6.4-8.2); URIC ACID 6.1 MG/DL (2.6-6.0)
[2020-11-20] MEDS ORDERED: RHOGAM 300 MCG (1500 IU) INJ (J2790) IM SCH (11:50)
[2020-11-20] MEDS ORDERED: MEASLES,MUMPS,RUBELLA VACCINE INJ (MMR-II) (90707) SC SCH (11:50)
[2020-11-20] MEDS ORDERED: SIMETHICONE 80MG CHEW TAB PO PRN (11:50)
[2020-11-20] MEDS ORDERED: PERCOCET 5MG/325MG TAB PO PRN (11:50)
[2020-11-20] MEDS ORDERED: OXYTOCIN DRIP 30 UNITS in IV 1 EA IV SCH (11:50)
[2020-11-20] MEDS ORDERED: ACETAMINOPHEN 500 MG TAB PO PRN (11:50)
--- NOTE | 2020-11-20 12:24 | ROOPDOC ---
[facility] Report Of Operation Report of Operation DATE OF PROCEDURE: November 20, 2020 PREPROCEDURE DIAGNOSES: 33+4 weeks gestation, intrauterine demise, acute placental abruption, chronic hypertension with superimposed preeclampsia with severe features, history of low transverse section x2 POSTPROCEDURE DIAGNOSES: Same, placental abruption confirmed PROCEDURE: Repeat low transverse section SURGEON: Jeremy Tesfaye DO FACOG GLUE LINE OPERATOR: Adilson Beckman DO (Essential role in retraction, extraction, and closure of all tissue layers) ANESTHESIA: Spinal ESTIMATED BLOOD LOSS: 900 mL. (included in this total is approx 500ml of blood/clot in uterus) IV FLUIDS: 1000 mL LR URINE OUTPUT: 75 mL COMPLICATIONS: Placental abruption, IUFD. PREOPERATIVE ANTIBIOTICS: Ancef 2g IV x 1, Azithromycin 500mg IV. COMPLICATIONS: none DATA: Stillborn, male. Birthweight 1830g, 4 lbs 1 oz. SPECIMENS: placenta PRIMARY INDICATION FOR : History of low transverse section x2 DESCRIPTION OF PROCEDURE: The patient was counseled on the risks, benefits, indications and alternatives of the procedure. Informed consent was obtained. She was taken to the operating room with IV running and placed on the operating table in the dorsal supine position with a leftward tilt. Regional anesthesia was found to be adequate. Sequential compression devices were placed on the lower extremities. A Proctor catheter was placed under sterile conditions. She was prepared and draped in normal sterile fashion. A time out was performed per protocol. Regional anesthesia was again found to be adequate. A Pfannenstiel skin incision was made with the 10 blade. The 10 blade was used to dissect down to the level of the rectus sheath fascia. The rectus sheath pressure was incised midline and this was extended bilaterally with Felder scissors , and manual stretch. The rectus muscle bellies were dissected off the rectus sheath fascia superiorly and inferiorly using both sharp and blunt dissection. The midline was identified. The peritoneum was identified and entered digitally. The peritoneal opening was extended with manual stretch. The Mobius retractor was placed. The vesicouterine peritoneum was dissected with Metzenbaum scissors to create the bladder flap. A low transverse uterine incision was made with the 10 blade. This was extended with manual stretch. The amniotic sac was punctured, and clear fluid was noted. The baby with a detached/placenta abruptio delivered through the hysterotomy without difficulty. data shown above. 500ml of blood and clot located at the level of the fundus, c/w placental abruption. The intrauterine cavity was cleared of all clot and debris. The hysterotomy was closed with 0 Vicryl in running locked fashion. This was reinforced with a second imbricating layer using 0 Monocryl in running fashion. Excellent hemostasis of the hysterotomy was noted. The pelvis was irrigated and the fluid suctioned. The Mobius retractor was removed. The peritoneum was closed with 3-0 Vicryl running fashion. The rectus muscle bellies were reapproximated with interrupted stitches using 3-0 Vicryl. The rectus muscles bellies were hemostatic. The rectus sheath fascia was closed with 0 Vicryl running fashion. The subcutaneous layer was irrigated and the fluid suctioned. Small bleeding vessels were cauterized with Bovie. Excellent hemostasis was noted. The subcutaneous layer was reapproximated with 3-0 Vicryl running fashion. Skin was closed with 3-0 Monocryl in subcuticular fashion. An Optifoam bandage was placed over the closed incision. Sponge, needle and instrument counts were correct per protocol throughout the procedure. The patient tolerated the entire procedure very well. She was transferred to the PACU in stable condition. DO BEVERLY George JONATHAN R. DO Nov 20, 2020 12:24
[2020-11-20] MEDS ORDERED: MEPERIDINE INJ 25 MG/ML VIAL (J2175) IV PRN (12:40)
[2020-11-20] MEDS ORDERED: fentaNYL 100 MCG/2 ML INJECTION (J3010) IV PRN (12:40)
[2020-11-20] MEDS ORDERED: HYDROMORPHONE HCL 0.5 MG/ 0.5 ML SYRINGE (J1170 PER 1) IV PRN (12:40)
[2020-11-20] MEDS ORDERED: oxyCODONE 5MG TAB PO PRN (12:40)
[2020-11-20 13:55] LABS: HEMATOCRIT 28.7 % (36.0-47.0); HEMOGLOBIN 9.2 g/dl (12.0-15.5); MEAN CORPUSCULAR HEMOGLOBIN 28.4 pg (27.0-33.0); MEAN CORPUSCULAR HGB CONC 32.1 g/dl (32.0-36.5); MEAN CORPUSCULAR VOLUME 88.6 fl (80.0-96.0); PLATELET COUNT, AUTOMATED 158 10^3/uL (150-450); RED BLOOD COUNT 3.24 10^6/uL (4.00-5.40); WHITE BLOOD COUNT 15.4 10^3/uL (4.0-10.0)
[2020-11-20 14:00] LABS: INR 1.38; PROTHROMBIN TIME 17.4 SECONDS (12.7-14.5)
[2020-11-20 14:01] LABS: PARTIAL THROMBOPLASTIN TIME 30.1 SECONDS (25.9-37.0)
[2020-11-20] MEDS: KETOROLAC 30 MG/ML 1ML VIAL IV SCH ×2 (17:03→23:00)
[2020-11-20] MEDS ORDERED: diphenhydrAMINE 50MG/ML VIAL (J1200) IV STA (18:50)
[2020-11-20] MEDS ORDERED: MAGNESIUM SULFATE 4% INJ 20GM/500ML (40MG/ML) As Ordered ONE (20:01)
[2020-11-20] MEDS: DOCUSATE SODIUM 100MG CAPSULE PO SCH (21:00)
[2020-11-21] VITALS (47 sets, daily range): BP systolic 117–202; BP diastolic 58–111
[2020-11-21] MEDS: LR 1,000 ML IV SCH ×2 (02:05→15:25)
[2020-11-21] MEDS: MAG Sulf (OBGYN) 20GM/500ML 20,000 MG in IV 1 EA IV SCH ×3 (04:10→22:30)
[2020-11-21 06:31] LABS: MEAN CORPUSCULAR HEMOGLOBIN 28.6 pg (27.0-33.0); MEAN CORPUSCULAR HGB CONC 32.1 g/dl (32.0-36.5); PLATELET COUNT, AUTOMATED 101 10^3/uL (150-450); RED BLOOD COUNT 1.82 10^6/uL (4.00-5.40); WHITE BLOOD COUNT 16.8 10^3/uL (4.0-10.0)
[2020-11-21 06:34] LABS: HEMATOCRIT 16.2 % (36.0-47.0); HEMOGLOBIN 5.2 g/dl (12.0-15.5)
--- NOTE | 2020-11-21 06:52 | IPNPDOC ---
Progress Note Date of Service: Nov 21, 2020 Progress Note SUBJECT: Status post RLTCS for acute placental abruption/IUFD. Also complicated by preeclampsia with severe features. She has been receiving magnesium sulfate since shortly after admission, and this has continued postoperatively. she is tolerating small amounts of p.o./regular diet. Lochia decreasing/minimal. Pain is well-controlled. Incision bandage is clean/unsaturated. Denies headache, visual changes, right upper quadrant pain, shortness of breath or chest pain. OBJECTIVE: VITAL SIGNS: intermittently hypertensive; blood pressures have significantly improved compared to predelivery readings, afebrile. Alert and oriented times three. Abdomen: Fundus firm at U-2. Soft, NTTP. Incision bandage not soaked through ASSESSMENT: Status post RLTCS. Significant postoperative anemia, but patient is minimally symptomatic. Afebrile, hemodynamically stable with no evidence of infection. PLAN: Transfuse 4 units packed red blood cells Discontinue magnesium sulfate later this morning if blood pressures remain normal/stable Continue to advance postoperatively Stefanie Tesfaye DO VS, I&O, 24H, [place] Vital Signs/I&O Vital Signs Date Time Temp Pulse Resp B/P (MAP) Pulse Ox O2 Delivery O2 Flow Rate FiO2 11/21/20 04:37 81 132/69 (90) 11/20/20 21:00 98.6 11/20/20 13:35 16 11/20/20 12:51 100 I&O- Last 24 Hours up to 6 AM 11/21/20 06:00 Intake Total 3688 ml Output Total 2025 ml Balance 1663 ml Laboratory Data 24H LABS Laboratory Tests 2 11/20/20 06:52: 11/20/20 07:49: 11/20/20 09:09: Nucleated Red Blood Cells % (auto) 0.0, Prothrombin Time 16.9H, Prothromb Time International Ratio 1.33, Activated Partial Thromboplast Time 36.8, Fibrinogen 117L, Anion Gap 10, Glomerular Filtration Rate > 60.0, Uric Acid 6.1H, Calcium Level 9.1, Total Bilirubin 0.9, Aspartate Amino Transf (AST/SGOT) 32, Alanine Aminotransferase (ALT/SGPT) 28, Alkaline Phosphatase 95, Lactate Dehydrogenase 298H, Total Protein 6.8, Albumin 2.9L, Albumin/Globulin Ratio 0.7L 11/20/20 13:23: Nucleated Red Blood Cells % (auto) 0.0, Prothrombin Time 17.4H, Prothromb Time International Ratio 1.38, Activated Partial Thromboplast Time 30.1, Fibrinogen 105L 11/21/20 06:15: Nucleated Red Blood Cells % (auto) 0.0 CBC/BMP Laboratory Tests 11/20/20 09:09 11/20/20 13:23 11/21/20 06:15 ELY TESFAYE DO Nov 21, 2020 06:52
[2020-11-21] MEDS: KETOROLAC 30 MG/ML 1ML VIAL IV SCH (07:05)
[2020-11-21] MEDS: DOCUSATE SODIUM 100MG CAPSULE PO SCH ×2 (08:42→21:06)
[2020-11-21] MEDS: LABETALOL 200 MG TAB PO SCH (08:42)
[2020-11-21] MEDS: PRENATAL VITAMINS CHEWABLE TABLET PO SCH (08:42)
[2020-11-21] MEDS ORDERED: PERCOCET PO (08:43)
[2020-11-21] MEDS ORDERED: IBUP80TA PO (08:43)
[2020-11-21] MEDS ORDERED: COLA100C5 PO (08:43)
[2020-11-21] MEDS: PERCOCET 5MG/325MG TAB PO PRN ×2 (12:15→19:02)
[2020-11-21] MEDS ORDERED: LABETALOL 100MG/20ML VIAL As Ordered ONE (12:19)
[2020-11-21] MEDS ORDERED: LABETALOL 100MG/20ML VIAL IV STA ×3 (12:23→14:35)
[2020-11-21] MEDS: IBUPROFEN 800 MG TAB PO SCH ×2 (13:26→21:06)
[2020-11-21] MEDS ORDERED: SLF 3 ML SYR IV PRN (15:40)
[2020-11-21] MEDS: LABETALOL 100MG TAB PO SCH ×2 (16:18→21:07)
--- NOTE | 2020-11-21 20:59 | IPNPDOC ---
Progress Note Date of Service: Nov 21, 2020 Day#: 1 Progress Note SUBJECT: Stepan is a 44-year-old female that had a repeat section yesterday. She reports having a migraine that resolved with Percocet. She denies visual changes, chest pain, SOB. OBJECTIVE: VITAL SIGNS and labs: see below. Alert and oriented times three. She has been sitting in bed and teary eyed. Friend and SO at bedside. Respiratory rate is regular without use of accessory muscles. Breath sounds clear to auscultation bilaterally. Abdomen: Fundus firm. Dressing is intact. No surrounding erythema. Minimal lochia. Extremities: 2-3+ pitting edema in feet and legs. No clonus. ASSESSMENT: Day 1 postoperative, CHTN with superimposed preeclampsia with severe features, IUFD PLAN: 1. She received 4 units of blood for acute blood loss. Will repeat labs in the morning. 2. Reported having a migraine after her 3rd unit but had also been crying. Given Percocet and reports it resolved. 3. The Magnesium was stopped at noon and patient has been OOB and ambulated to bathroom and voided. 4. She will be transferred to . 5. PFS has been placed and tomorrow we will consult psych to evaluate her and set her up for counseling. Friend of patient that is in the room reported that patient is blaming SO for because he hasn't been "very good to her and has stressed her out." Friend states she reported she doesn't want to live anymore and is worried she isn't going to do well without support when she goes home. 6. Baby has gone to [facility] and has been picked up by home. 7. She did receive 3 doses of IV labetalol today after consulting Dr. Liang. Pressures are now stable. VS, I&O, 24H, Fishbone Vital Signs/I&O Vital Signs Date Time Temp Pulse Resp B/P (MAP) Pulse Ox O2 Delivery O2 Flow Rate FiO2 11/21/20 19:32 16 Room Air 11/21/20 18:20 71 145/81 (102) 11/21/20 15:08 97.2 96 I&O- Last 24 Hours up to 6 AM 11/21/20 06:00 Intake Total 3688 ml Output Total 2025 ml Balance 1663 ml Laboratory Data 24H LABS Laboratory Tests 2 11/21/20 06:15: Nucleated Red Blood Cells % (auto) 0.0 CBC/BMP Laboratory Tests 11/21/20 06:15 FRED FORD CNM Nov 21, 2020 20:59
[2020-11-21] MEDS: SLF 3 ML SYR IV SCH (21:07)
[2020-11-22] VITALS (9 sets, daily range): BP systolic 129–183; BP diastolic 62–98
[2020-11-22] MEDS: PERCOCET 5MG/325MG TAB PO PRN ×4 (01:46→23:04)
[2020-11-22 04:07] LABS: ANTI PARVO VIRUS LEVEL IGG 0.2 index (0.0-0.8); ANTI PARVO VIRUS LEVEL IgM 0.2 index (0.0-0.8); BETA-2 GLYCOPROTEIN I ABY IGA <9 (0-25); BETA-2 GLYCOPROTEIN I ABY IGG <9 (0-20); BETA-2 GLYCOPROTEIN I ABY IGM <9 (0-32); CARDIOLIPIN IGA ANTIBODY <9 APL U/mL (0-11); CARDIOLIPIN IGG ANTIBODY <9 GPL U/mL (0-14); CARDIOLIPIN IGM ANTIBODY <9 MPL U/mL (0-12)
[2020-11-22] MEDS: LR 1,000 ML IV SCH ×2 (04:19→18:05)
[2020-11-22] MEDS: SLF 3 ML SYR IV SCH ×3 (05:16→21:02)
[2020-11-22] MEDS: IBUPROFEN 800 MG TAB PO SCH ×3 (05:16→21:01)
[2020-11-22] MEDS: MAG Sulf (OBGYN) 20GM/500ML 20,000 MG in IV 1 EA IV SCH ×2 (08:30→18:30)
[2020-11-22] MEDS: DOCUSATE SODIUM 100MG CAPSULE PO SCH ×2 (08:52→21:01)
[2020-11-22] MEDS: LABETALOL 100MG TAB PO SCH ×3 (08:54→21:10)
[2020-11-22] MEDS: PRENATAL VITAMINS CHEWABLE TABLET PO SCH (08:55)
[2020-11-22 11:00] LABS: HEMATOCRIT 27.8 % (36.0-47.0); MEAN CORPUSCULAR HEMOGLOBIN 29.1 pg (27.0-33.0); MEAN CORPUSCULAR HGB CONC 33.5 g/dl (32.0-36.5); MEAN CORPUSCULAR VOLUME 86.9 fl (80.0-96.0); PLATELET COUNT, AUTOMATED 131 10^3/uL (150-450); WHITE BLOOD COUNT 17.1 10^3/uL (4.0-10.0)
[2020-11-22 11:04] LABS: HEMOGLOBIN 9.3 g/dl (12.0-15.5)
[2020-11-22 11:19] LABS: BILIRUBIN,TOTAL 0.4 MG/DL (0.2-1.0); CREATININE FOR GFR 1.34 MG/DL (0.55-1.30); GLOMERULAR FILTRATION RATE 46.2 (>58); URIC ACID 8.5 MG/DL (2.6-6.0)
--- NOTE | 2020-11-22 16:46 | IPNPDOC ---
Progress Note Date of Service: Nov 22, 2020 Day#: 2 Progress Note SUBJECT: Recovery in stable condition. Ambulating, voiding and pain is moderately controlled. Reports minimal lochia. This continued to express severe depression and has had a difficult time coping with loss. Interested in mental health/counseling OBJECTIVE: VITAL SIGNS: Within normal limits, afebrile. Alert and oriented times three. Abdomen: Fundus firm at U-2. Soft, NTTP. Incision: dressed Ext: neg calf tenderness. ASSESSMENT: /postoperative day #2 status post delivery /chronic hypertension with severe preeclampsia/placental abruption with demise. PLAN: 1. Continue routine /postoperative care 2. Psychiatry consult 3. Continue to adjust hypertensive medication. Procardia 30 mg daily VS, I&O, 24H, Fishbone Vital Signs/I&O Vital Signs Date Time Temp Pulse Resp B/P (MAP) Pulse Ox O2 Delivery O2 Flow Rate FiO2 11/22/20 16:11 16 11/22/20 16:10 88 140/73 11/22/20 14:27 98.2 11/22/20 06:00 98 Room Air I&O- Last 24 Hours up to 6 AM 11/22/20 06:00 Intake Total 2329 ml Output Total 1805 ml Balance 524 ml Laboratory Data 24H LABS Laboratory Tests 2 11/22/20 10:30: Nucleated Red Blood Cells % (auto) 0.1H, Glomerular Filtration Rate 46.2L, Uric Acid 8.5H, Total Bilirubin 0.4#, Aspartate Amino Transf (AST/SGOT) 35, Alanine Aminotransferase (ALT/SGPT) 26, Lactate Dehydrogenase 350H CBC/BMP Laboratory Tests 11/22/20 10:30 RUPERT MADERA MD. Nov 22, 2020 16:46
--- NOTE | 2020-11-22 17:34 | MHIPNPDOC ---
[facility] Progress Note Progress Note DATE OF SERVICE: 11/22/20 Subjective 44yo at 33+4 weeks who presented earlier this morning with complaints of new onset vaginal bleeding, PETERSEN since yesterday (pt said she was stressed yesterday), and absent movement since yesterday evening. Evaluation upon her presentation revealed severe range blood pressures and US evidence of demise. She was immediately treated with antihypertensives, and magnesium sulfate was started. Blood pressures since admission have remained difficult to control with repetitive dosing of antihypertensives. States she feels "poorly" and does have a headache. She has had a mild to moderate amount of vaginal bleeding since she's been here. Over the last hour, she has passed blood clots and is starting to feel lower abdominal / uterine contractions and generalized abdominal pain. Earlier this week, as indicated in her PN record, her labetalol dosing was increased to 200mg TID because her BP in the office was nearing severe range. She was asymptomatic at that time. Antepartum testing was reassuring (modified BPP) during her PN appointment. HISTORY: 44-year-old who has known her for 14 years. She has a 12-year-old son and a 6-year-old daughter her is disabled from the [employer]. She is presently a student. Due to the above episode she had a demise. Her medical history is negative surgical history is negative neurological history is negative. She has never had any psychiatric care inpatient or outpatient and never been treated for depression she has made no suicidal statements but apparently was having some relationship difficulties when her bleeding began to occur she has been arguing with her lately and he thinks the arguments because of this event VITAL SIGNS: See below. NEW TEST RESULTS: CURRENT MEDICATIONS: See below. MENTAL STATUS EXAMINATION: Patient is a 44-year old female, who is severely depressed and noncommunicative. Speech: Is barely existent. Language skills are no abnormality. Thought processes including: No overt thought disorder. Thought content: Difficult to determine. Abstract reasoning, and computation: Able to abstract. Description of associations: No loose associations. Description of abnormal or psychotic thoughts: No overt psychotic. Judgment: No disturbance in judgment. Insight: Fair. Orientation: Oriented x3. Recent and remote memory: Intact. Attention span and concentration: Intact. Language: Limited. Fund of knowledge: Full. Mood: Sad. Affect: Flat. DIAGNOSES: 1. Situational depression. 2. depression 3. bleeding. ASSESSMENT: Significantly depressed at this time following demise. No homicidal or suicidal thoughts or intent MANAGEMENT PLAN: Observation and use of SSRI might be recommended patient is seriously depressed at this time as is her mate but cannot recommend inpatient psychiatry which might only complicate matters. suggest SSRI. And continued observation TIME SPENT: 35 minutes. Vital Signs Vital Signs Date Time Temp Pulse Resp B/P (MAP) Pulse Ox O2 Delivery O2 Flow Rate FiO2 11/22/20 16:45 16 11/22/20 16:10 88 140/73 11/22/20 14:27 98.2 11/22/20 06:00 98 Room Air Laboratory Data 24H Labs Laboratory Tests 2 11/22/20 10:30: Nucleated Red Blood Cells % (auto) 0.1H, Glomerular Filtration Rate 46.2L, Uric Acid 8.5H, Total Bilirubin 0.4#, Aspartate Amino Transf (AST/SGOT) 35, Alanine Aminotransferase (ALT/SGPT) 26, Lactate Dehydrogenase 350H CBC/BMP Laboratory Tests 11/22/20 10:30 Current Medications Current Medications Medications (Trade) Dose Ordered Sig/Miya Route PRN Reason Start Time Stop Time Status Last Admin Dose Admin Acetaminophen (Tylenol Tab) 1,000 mg Q6HP PRN PO PAIN LEVEL 6-10 11/20/20 11:50 11/20/20 15:37 Carboprost Tromethamine (Hemabate) 250 mcg Q15M PRN IM MOD/HEAVY LOCHIA 11/20/20 10:00 Dextrose/Lactated Ringer's 1,000 ml @ 75 mls/hr [id number] IV 11/20/20 06:30 11/20/20 11:50 DC Diphenhydramine HCl (Benadryl) 12.5 mg Q4H PRN IV ITCHING 11/20/20 10:24 11/21/20 10:23 DC 11/21/20 09:40 Diphenhydramine HCl (Benadryl) 50 mg STAT STAT IV 11/20/20 18:50 11/20/20 18:53 DC 11/20/20 18:56 Docusate Sodium (Colace) 100 mg BID PO 11/20/20 21:00 11/22/20 08:52 Fentanyl Citrate (Sublimaze) 25 mcg Q5MP PRN IV PAIN LEVEL 8-10 11/20/20 12:40 11/20/20 14:40 DC Hydralazine HCl (Apresoline) 10 mg STAT STAT IV 11/20/20 06:28 11/20/20 06:30 DC 11/20/20 06:33 Hydralazine HCl (Apresoline) 20 mg STAT STAT IV 11/20/20 09:05 11/20/20 09:06 DC 11/20/20 09:08 Hydromorphone HCl (Dilaudid) 0.2 mg Q5MP PRN IV PAIN LEVEL 5-7 11/20/20 12:40 11/20/20 14:40 DC Ibuprofen (Advil) 800 mg Q8H PO 11/21/20 13:00 11/22/20 12:31 Ketorolac Tromethamine (ToRADol) 30 mg Q6H IV 11/20/20 17:00 11/21/20 05:01 DC 11/20/20 17:03 Labetalol HCl (Normodyne, Trandate) 20 mg STAT STAT IV 11/21/20 12:23 11/21/20 12:24 DC 11/21/20 12:27 Labetalol HCl (Normodyne, Trandate) 40 mg STAT STAT IV 11/21/20 12:47 11/21/20 12:48 DC 11/21/20 12:54 Labetalol HCl (Normodyne, Trandate) 80 mg STAT STAT IV 11/21/20 14:35 11/21/20 14:36 DC 11/21/20 14:42 Labetalol HCl (Normodyne, Trandate) 200 mg TID PO 11/20/20 09:00 11/21/20 16:12 DC 11/21/20 08:42 Labetalol HCl (Normodyne, Trandate) 300 mg TID PO 11/21/20 16:15 11/22/20 16:10 Lactated Ringer's 1,000 ml @ 75 mls/hr [id number] IV 11/21/20 02:05 11/21/20 02:05 Lidocaine HCl (Lidocaine 2% Urojet) APPLY TO CATHETER TIP ASDIRECTED PRN TOP FOR EACH CATHETERIZATION 11/20/20 07:40 11/20/20 11:50 DC Magnesium Sulfate 25189 mg/IV Miscellaneous Supplies 500 ml @ 50 mls/hr Q10H IV 11/20/20 06:30 11/21/20 04:10 Measles/Mumps/ Rubella Vaccine Live (M-M-R Ii w/ Diluent) 0.5 ml ASDIRECTED SC 11/20/20 11:50 Meperidine HCl (Demerol) 12.5 mg Q5MP PRN IV SHIVERING 11/20/20 12:40 11/20/20 14:40 DC Metoclopramide HCl (REGLAN INJection) 10 mg Q6HP PRN IV NAUSEA 11/20/20 10:24 11/21/20 10:23 DC Misoprostol (Cytotec) 1,000 mcg ASDIRECTED PRN TN MOD/HEAVY LOCHIA 11/20/20 10:00 Nalbuphine HCl (Nubain) 2.5 mg ASDIRECTED PRN IV PRURITIS ASSOC WITH NARCOTICS 11/20/20 12:40 11/20/20 14:40 DC Nalbuphine HCl (Nubain) 2.5 mg Q4HP PRN IV REFRACTORY ITCHING 11/20/20 10:24 11/21/20 10:23 DC Naloxone HCl (Narcan) 0.1 mg Q5MP PRN IV SEE LABEL COMMENTS 11/20/20 10:24 11/21/20 10:23 DC Naloxone HCl (Narcan) 0.1 mg Q5MP PRN IV SEE LABEL COMMENTS 11/20/20 10:24 11/21/20 10:23 DC Nifedipine (Procardia) 10 mg STAT STAT PO 11/20/20 08:03 11/20/20 08:05 DC 11/20/20 08:36 Ondansetron HCl (ZOFRAN INJection) 4 mg Q4HP PRN IV NAUSEA OR VOMITING 11/20/20 12:40 11/20/20 14:40 DC Ondansetron HCl (ZOFRAN INJection) 4 mg Q6H PRN IV NAUSEA 11/20/20 11:50 Ondansetron HCl (ZOFRAN INJection) 4 mg Q6HP PRN IV NAUSEA 11/20/20 10:24 11/21/20 10:23 DC Oxycodone HCl (Roxicodone, Oxyir) 5 mg ASDIRECTED PRN PO PAIN LEVEL 1-4 11/20/20 12:40 11/20/20 14:40 DC Oxycodone/ Acetaminophen (Percocet 5mg/ 325mg Tablet) 1 tab Q4H PRN PO MODERATE PAIN (PS 5-7) 11/20/20 11:50 Oxycodone/ Acetaminophen (Percocet 5mg/ 325mg Tablet) 2 tab Q6H PRN PO SEVERE PAIN (PS 8-10) 11/20/20 11:50 11/22/20 16:11 Oxytocin 30 units/ IV Miscellaneous Supplies 500 ml @ 125 mls/hr Q4H IV 11/20/20 11:50 11/20/20 15:49 DC 11/20/20 12:07 Prenat Multivit/ [place]/Iron/Folic Ac ( Vitamins) 1 tab DAILY PO 11/21/20 09:00 11/22/20 08:55 Rho Immune Globulin (Rhogam Injection) 300 mcg ASDIRECTED IM 11/20/20 11:50 Simethicone (Mylicon) 80 mg QID PRN PO GAS PAIN 11/20/20 11:50 Sodium Chloride (Saline Lock Flush) 2 ml ASDIRECTED PRN IV SEE LABEL COMMENTS 11/21/20 15:40 Sodium Chloride (Saline Lock Flush) 2 ml SLF IV 11/21/20 22:00 11/22/20 12:32 Tranexamic Acid 1000 mg/Sodium Chloride 110 ml @ 660 mls/hr ASDIRECTED PRN IV MOD/HEAVY LOCHIA 11/20/20 10:00 Allergies Coded Allergies: No Known Allergies (Unverified , 07/01/14) IVANA OSEI MD Nov 22, 2020 17:34
[2020-11-22] MEDS ORDERED: zolPIDEM TARTRATE 5 MG TAB PO PRN (20:15)
[2020-11-22] MEDS ORDERED: NIFEdipine 30 MG XL TAB PO SCH (22:35)
[2020-11-23 02:00] VITALS: BP 158/85
[2020-11-23] MEDS: MAG Sulf (OBGYN) 20GM/500ML 20,000 MG in IV 1 EA IV SCH (04:30)
[2020-11-23] MEDS: SLF 3 ML SYR IV SCH (05:08)
[2020-11-23] MEDS: IBUPROFEN 800 MG TAB PO SCH (05:08)
[2020-11-23 06:00] VITALS: BP 150/98
[2020-11-23] MEDS: LR 1,000 ML IV SCH (07:25)
[2020-11-23] MEDS: PRENATAL VITAMINS CHEWABLE TABLET PO SCH (08:44)
[2020-11-23] MEDS: DOCUSATE SODIUM 100MG CAPSULE PO SCH (08:45)
[2020-11-23 08:46] VITALS: BP 150/98
[2020-11-23] MEDS: LABETALOL 100MG TAB PO SCH (08:46)
[2020-11-23] MEDS ORDERED: ZOLO50TA PO (09:58)
[2020-11-23] MEDS ORDERED: NIFE1TAB52 PO (09:58)
[2020-11-23] MEDS ORDERED: LABE100T4 PO (09:58)
[2020-11-23] MEDS ORDERED: AMBI5TAB PO (09:58)
[2020-11-23 10:02] VITALS: BP 168/80
--- NOTE | 2020-11-23 10:12 | DS.PDOC ---
Discharge Summary General Date of Admission Nov 20, 2020 at 04:55 Date of Discharge 11/23/20 Attending Physician: ELY MATAMOROS DO Discharge Summary PROCEDURES PERFORMED DURING STAY: 1. Repeat section 2. Spinal anesthesia. 3. Transfusion 4 packed red blood cells ADMITTING DIAGNOSES: 1. 33+4 weeks gestation, intrauterine demise, acute placental abruption, chronic hypertension with superimposed preeclampsia with severe features, history of low transverse section x2 DISCHARGE DIAGNOSES: 1. Same as above. COMPLICATIONS/CHIEF COMPLAINT: IUFD. HISTORY OF PRESENT ILLNESS/HOSPITAL COURSE: 44yo at 33+4 weeks who presented with complaints of new onset vaginal bleeding, PETERSEN since yesterday (pt said she was stressed yesterday), and absent movement since yesterday evening. Evaluation upon her presentation revealed severe range blood pressures and US evidence of demise. She was immediately treated with antihypertensives, and magnesium sulfate was started. Blood pressures since admission have remained difficult to control with repetitive dosing of antihypertensives. States she feels "poorly" and does have a headache. She has had a mild to moderate amount of vaginal bleeding since she's been here. Over the last hour, she has passed blood clots and is starting to feel lower abdominal / uterine contractions and generalized abdominal pain. She was diagnosed with intrauterine demise due to placenta abruption/severe preeclampsia. She received 4 units of packed red blood cells. She underwent a section, blood loss is 500 mL. She remained in the hospital for 3 postoperative days 4 postoperative care as well as blood pressure management. By postoperative day #2 she had met all discharge criteria is as discharged home in stable condition. DISCHARGE MEDICATIONS: Please see below. ALLERGIES: Please see below. PHYSICAL EXAMINATION ON DISCHARGE: VITAL SIGNS: Please see below. GENERAL: No distress HEENT: WNL ABDOMINAL EXAMINATION: Fundus firm. Dressing intact EXTREMITIES: Equal strength and motion SKIN: Intact NEUROLOGICAL EXAMINATION: Grossly intact PSYCHIATRIC EXAMINATION: Appropriate LABORATORY DATA: Please see below. PROGNOSIS: Good ACTIVITY: As tolerated. Pelvic rest. DIET: As tolerated DISCHARGE PLAN: Discharge today. Remove dressing day 5 DISPOSITION: Home DISCHARGE INSTRUCTIONS: 1. Pelvic rest. Continue vitamins. Medications as ordered. Call with fever, nausea, vomiting, chills, foul lochia, wound exudate or evidence infection. RTO early this week for blood pressure check. DISCHARGE CONDITION: Stable Vital Signs/I&Os Vital Signs Date Time Temp Pulse Resp B/P (MAP) Pulse Ox O2 Delivery O2 Flow Rate FiO2 11/23/20 09:20 15 11/23/20 08:46 68 150/98 11/23/20 06:00 98.2 96 Room Air Laboratory Data Labs 24H Laboratory Tests 2 11/22/20 10:30: Nucleated Red Blood Cells % (auto) 0.1H, Glomerular Filtration Rate 46.2L, Uric Acid 8.5H, Total Bilirubin 0.4#, Aspartate Amino Transf (AST/SGOT) 35, Alanine Aminotransferase (ALT/SGPT) 26, Lactate Dehydrogenase 350H CBC/BMP Laboratory Tests 11/22/20 10:30 Discharge Medications Scheduled Docusate Sodium (Colace) 100 Mg Capsule, 100 MG PO BID Ibuprofen (Ibuprofen) 800 Mg Tablet, 800 MG PO Q8H Labetalol HCl (Labetalol HCl) 100 Mg Tablet, 300 MG PO TID Nifedipine (Nifedipine ER) 30 Mg Tab.er.24, 30 MG PO DAILY@2100 Sertraline Hcl (Zoloft) 50 Mg Tablet, 1 TAB PO DAILY Scheduled PRN Oxycodone/Acetaminophen (Oxycodone-Acetaminophen 5-325) 1 Each Tablet, 1 TAB PO Q4H PRN for MODERATE PAIN (PS 5-7) Zolpidem Tartrate (Ambien) 5 Mg Tablet, 5 MG PO QHSP PRN for SLEEP Miscellaneous Medications Vitamin D3/Folic Acid (Noxifol-D3 2,500 Unit-1 mg Tab) 2,500 Unit Tablet, 1 TAB PO, (Reported) Allergies Coded Allergies: No Known Allergies (Unverified , 07/01/14) RUPERT MADERA MD. Nov 23, 2020 10:11
[2020-11-25 11:56] LABS: DRVV SCREEN 41.2 SEC
[2020-11-25 12:04] LABS: PTT LUPUS TYPE ANTICOAG SCREEN 1.1 (0-1.2)
== END 2020-11-23 11:05 | disposition home or self-care (01) | DRG 540 ==
LOC: M LDO 03:06 → M LDI 04:55 → M OBS 11-21 21:15
PROVIDERS: ADMIT Advanced Practice Midwife; ATTEND Advanced Practice Midwife
PROC: 10D00Z1 Extraction of Products of Conception, Low, Open Approach (ICD-10-PCS; principal; 2020-11-20 09:49)
PROC: 30233N1 Transfusion of Nonautologous Red Blood Cells into Peripheral Vein, Percutaneous Approach (ICD-10-PCS; 2020-11-21)
DX: O34.211 Maternal care for low transverse scar from previous cesarean delivery (principal); O45.93 Premature separation of placenta, unspecified, third trimester; D62 Acute posthemorrhagic anemia; O99.355 Diseases of the nervous system complicating the puerperium; Z37.1 Single stillbirth; Z3A.33 33 weeks gestation of pregnancy; O11.4 Pre-existing hypertension with pre-eclampsia, complicating childbirth; O09.523 Supervision of elderly multigravida, third trimester; Z79.899 Other long term (current) drug therapy; O99.03 Anemia complicating the puerperium; G43.909 Migraine, unspecified, not intractable, without status migrainosus; F53.0 Postpartum depression

== ENCOUNTER → 2021-02-09 | Outpatient (REF) | payer OTHER ==
[~2021-02-09] MED LIST changes: +AMBI5TAB PO; +COLA100C5 PO; +IBUP80TA PO; +NIFE1TAB52 PO; +PERCOCET PO; +ZOLO50TA PO
== END ==
LOC: M SFHCWAGY 15:30
PROVIDERS: ATTEND Obstetrics & Gynecology
DX: Z12.4 Encounter for screening for malignant neoplasm of cervix (principal); Z77.9 Other contact with and (suspected) exposures hazardous to health; R87.610 Atypical squamous cells of undetermined significance on cytologic smear of cervix (ASC-US)

== ENCOUNTER → 2021-03-05 | Outpatient (CLI) | payer OTHER ==
[2021-03-05 13:13] LABS: BASO % 0.4 % (0.0-1.0); EOS # 0.1 10^3/uL (0.0-0.5); EOS % 1.7 % (0.0-3.0); HEMATOCRIT 38.7 % (36.0-47.0); HEMOGLOBIN 12.2 g/dl (12.0-15.5); LYMPH # 2.2 10^3/uL (1.5-5.0); LYMPH % 27.8 % (24.0-44.0); MEAN CORPUSCULAR HEMOGLOBIN 27.7 pg (27.0-33.0); MEAN CORPUSCULAR HGB CONC 31.5 g/dl (32.0-36.5); MONO # 0.6 10^3/uL (0.0-0.8); MONO % 8.2 % (2.0-8.0); NEUTROPHILS # 4.8 10^3/uL (1.5-8.5); NEUTROPHILS % 61.6 % (36.0-66.0); PLATELET COUNT, AUTOMATED 333 10^3/uL (150-450); WHITE BLOOD COUNT 7.8 10^3/uL (4.0-10.0)
[2021-03-05 13:23] LABS: TOTAL PROTEIN,RANDOM URINE 12.4 MG/DL (0.0-12.0)
[2021-03-05 14:26] LABS: ALT/SGPT 21 U/L (12-78); BILIRUBIN,TOTAL 0.3 MG/DL (0.2-1.0); CREATININE FOR GFR 0.74 MG/DL (0.55-1.30); GLOMERULAR FILTRATION RATE > 60.0 (>58); HCG, SERUM QUANTITATIVE 5227 MIU/ML; HEPATITIS C VIRUS ABY INDEX 0.1 INDEX (<0.8); HIV 1&2 SCREEN CENTAUR NEGATIVE (NEGATIVE); LDH LACTATE DEHYDROGENASE 123 U/L (84-246); URIC ACID 4.3 MG/DL (2.6-6.0)
[2021-03-05 14:54] LABS: GC DNA AMPLIFICATION NEGATIVE (NEGATIVE)
== END ==
LOC: M PLALAB 09:13
PROVIDERS: ATTEND Obstetrics & Gynecology
DX: O10.911 Unspecified pre-existing hypertension complicating pregnancy, first trimester (principal)

== ENCOUNTER → 2021-04-22 | Outpatient (CLI) | payer OTHER | LOC: M PLALAB 12:43 | PROVIDERS: ATTEND Obstetrics & Gynecology | DX: O09.511 Supervision of elderly primigravida, first trimester (principal); Z3A.00 Weeks of gestation of pregnancy not specified ==

== ENCOUNTER → 2021-05-04 | Outpatient (CLI) | payer OTHER | LOC: M PLALAB 10:08 | PROVIDERS: ATTEND Obstetrics & Gynecology | DX: O09.512 Supervision of elderly primigravida, second trimester (principal) ==

== ENCOUNTER → 2021-06-10 | Outpatient (CLI) | payer OTHER | LOC: M WHC 13:55 | PROVIDERS: ATTEND Obstetrics & Gynecology | DX: O10.912 Unspecified pre-existing hypertension complicating pregnancy, second trimester (principal); Z3A.19 19 weeks gestation of pregnancy ==

== ENCOUNTER → 2021-07-22 | Outpatient (CLI) | payer OTHER ==
[2021-07-22 10:57] LABS: HEMATOCRIT 37.5 % (36.0-47.0); HEMOGLOBIN 12.3 g/dl (12.0-15.5); MEAN CORPUSCULAR HEMOGLOBIN 28.7 pg (27.0-33.0); MEAN CORPUSCULAR HGB CONC 32.8 g/dl (32.0-36.5); MEAN CORPUSCULAR VOLUME 87.6 fl (80.0-96.0); PLATELET COUNT, AUTOMATED 327 10^3/uL (150-450); RED BLOOD COUNT 4.28 10^6/uL (4.00-5.40); WHITE BLOOD COUNT 8.6 10^3/uL (4.0-10.0)
== END ==
LOC: M PLALAB 07:23
PROVIDERS: ATTEND Obstetrics & Gynecology
DX: O34.211 Maternal care for low transverse scar from previous cesarean delivery (principal)

== ENCOUNTER → 2021-07-31 | Outpatient (CLI) | payer OTHER | LOC: M LAB 08:28 | PROVIDERS: ATTEND Obstetrics & Gynecology | DX: R73.09 Other abnormal glucose (principal) ==

== ENCOUNTER 2021-08-09 13:08 | Inpatient (IN) | payer OTHER ==
[2021-08-09] VITALS (8 sets, daily range): BP systolic 130–229; BP diastolic 83–187
[~2021-08-09] VITALS: Ht 165.1 cm; Wt 102.6 kg
[2021-08-09] MEDS ORDERED: D400400C PO (13:47)
[2021-08-09] MEDS ORDERED: ECOT81TA5 PO (13:47)
[2021-08-09] MEDS ORDERED: FOLI0.4T5 PO (13:47)
[2021-08-09] MEDS ORDERED: UNIS25TA3 PO (13:47)
[2021-08-09] MEDS ORDERED: PRENTAB9 PO (13:47)
[2021-08-09] MEDS ORDERED: FOLI20CA PO (13:48)
[2021-08-09] MEDS ORDERED: HOME MED LIST COMPLETE! XX SCH (13:50)
[2021-08-09] MEDS ORDERED: LR 1,000 ML IV SCH ×2 (15:10→21:50)
[2021-08-09] MEDS ORDERED: LACTATED RINGER'S 1000 ML IV ONE (15:10)
[2021-08-09 15:52] LABS: BASO % 0.3 % (0.0-1.0); EOS # 0.4 10^3/uL (0.0-0.5); EOS % 3.3 % (0.0-3.0); HEMATOCRIT 27.1 % (36.0-47.0); HEMOGLOBIN 8.8 g/dl (12.0-15.5); LYMPH # 1.9 10^3/uL (1.5-5.0); LYMPH % 16.5 % (24.0-44.0); MEAN CORPUSCULAR HGB CONC 32.5 g/dl (32.0-36.5); MEAN CORPUSCULAR VOLUME 86.3 fl (80.0-96.0); MONO # 0.9 10^3/uL (0.0-0.8); MONO % 8.2 % (2.0-8.0); NEUTROPHILS # 8.2 10^3/uL (1.5-8.5); NEUTROPHILS % 71.5 % (36.0-66.0); PLATELET COUNT, AUTOMATED 312 10^3/uL (150-450); RED BLOOD COUNT 3.14 10^6/uL (4.00-5.40); WHITE BLOOD COUNT 11.5 10^3/uL (4.0-10.0)
[2021-08-09 16:14] LABS: ALT/SGPT 20 U/L (12-78); BILIRUBIN,TOTAL 0.2 MG/DL (0.2-1.0); BLOOD UREA NITROGEN 9 MG/DL (7-18); CALCIUM LEVEL 9.7 MG/DL (8.5-10.1); CARBON DIOXIDE LEVEL 25 MEQ/L (21-32); CHLORIDE LEVEL 105 MEQ/L (98-107); CREATININE FOR GFR 0.77 MG/DL (0.55-1.30); GLOMERULAR FILTRATION RATE > 60.0 (>58); GLUCOSE, FASTING 96 MG/DL (70-100); LDH LACTATE DEHYDROGENASE 151 U/L (84-246); POTASSIUM SERUM 4.1 MEQ/L (3.5-5.1); SODIUM LEVEL 139 MEQ/L (136-145); TOTAL PROTEIN 7.7 GM/DL (6.4-8.2); URIC ACID 5.3 MG/DL (2.6-6.0)
[2021-08-09] MEDS ORDERED: BICITRA 30ML SOLN UDC PO ONE ×2 (16:30→19:30)
[2021-08-09] MEDS ORDERED: ceFAZolin SOD 2 GM in IV 1 EA IV ONE (19:30)
[2021-08-09] MEDS ORDERED: MORPHINE PRES-FREE INJ 10 MG/10 ML VIAL As Ordered ONE (19:37)
[2021-08-09] MEDS ORDERED: OXYTOCIN 30 UNITS IN 0.9% NaCl 500ML IV BAG (J2590) As Ordered ONE ×2 (19:38→21:41)
[2021-08-09] MEDS ORDERED: ONDANSETRON 4MG/2ML VIAL As Ordered ONE (19:41)
[2021-08-09] MEDS ORDERED: MIDAZOLAM INJ 2MG/2ML VIAL (J2250 PER 1MG) As Ordered ONE (20:36)
[2021-08-09] MEDS ORDERED: PHENYLephrine 500MCG 5ML (100MCG/ML) SYRINGE As Ordered ONE (20:45)
[2021-08-09] MEDS ORDERED: ePHEDrine SULFATE 25 MG/5 ML(5MG/ML) SYRINGE As Ordered ONE (20:45)
[2021-08-09] MEDS ORDERED: ACETAMINOPHEN 1000MG 100ML IV BTL (OFIRMEV) (J0131 PER 10MG) As Ordered ONE (20:48)
[2021-08-09] MEDS ORDERED: KETOROLAC 60MG 2ML VIAL As Ordered ONE (20:56)
[2021-08-09] MEDS ORDERED: METOCLOPRAMIDE INJ 10MG/2ML VIAL (J2765 PER 1) IV PRN ×2 (21:50)
[2021-08-09] MEDS ORDERED: fentaNYL 100 MCG/2 ML INJECTION IV PRN (21:50)
[2021-08-09] MEDS ORDERED: **NOTE PATIENT COMMENT** MISC XX SCH (21:50)
[2021-08-09] MEDS ORDERED: oxyCODONE 5MG TAB PO PRN (21:50)
[2021-08-09] MEDS ORDERED: NALOXONE INJ 0.4MG/1ML VIAL (J2310 PER 1MG) IV PRN ×2 (21:50)
[2021-08-09] MEDS ORDERED: SLF 3 ML SYR IV SCH (21:50)
[2021-08-09] MEDS ORDERED: ONDANSETRON 4MG/2ML VIAL IV PRN ×2 (21:50)
[2021-08-09] MEDS ORDERED: diphenhydrAMINE 50MG/ML VIAL (J1200) IV PRN (21:50)
[2021-08-09] MEDS ORDERED: PERCOCET 5MG/325MG TAB PO PRN (22:05)
[2021-08-09] MEDS ORDERED: MOM 30ML SUSPENSION UDC PO PRN (22:05)
[2021-08-09] MEDS ORDERED: OXYTOCIN DRIP 30 UNITS in IV 1 EA IV SCH (22:05)
[2021-08-09] MEDS ORDERED: MEASLES,MUMPS,RUBELLA VACCINE INJ (MMR-II) (90707) SC SCH (22:05)
[2021-08-09] MEDS ORDERED: RHOGAM 300 MCG (1500 IU) INJ (J2790) IM SCH (22:05)
[2021-08-09] MEDS ORDERED: SIMETHICONE 80MG CHEW TAB PO PRN (22:05)
[2021-08-09] MEDS ORDERED: diphenhydrAMINE 50MG CAP PO ONE (23:30)
[2021-08-10] VITALS (10 sets, daily range): BP systolic 121–158; BP diastolic 69–89
[2021-08-10] MEDS: KETOROLAC 30 MG/ML 1ML VIAL IV SCH ×3 (04:02→16:28)
[2021-08-10 07:29] LABS: MEAN CORPUSCULAR HEMOGLOBIN 28.2 pg (27.0-33.0); MEAN CORPUSCULAR HGB CONC 31.8 g/dl (32.0-36.5); MEAN CORPUSCULAR VOLUME 88.7 fl (80.0-96.0); PLATELET COUNT, AUTOMATED 228 10^3/uL (150-450); RED BLOOD COUNT 2.48 10^6/uL (4.00-5.40); WHITE BLOOD COUNT 8.9 10^3/uL (4.0-10.0)
[2021-08-10] MEDS ORDERED: LR 300 ML IV ONE (08:10)
[2021-08-10] MEDS: LR 1,000 ML IV SCH ×2 (08:32→12:23)
[2021-08-10] MEDS: DOCUSATE SODIUM 100MG CAPSULE PO SCH ×2 (10:02→20:18)
[2021-08-10] MEDS: PRENATAL VITAMINS CHEWABLE TABLET PO SCH (10:02)
[2021-08-10] MEDS: FERROUS GLUCONATE 324 MG TAB PO SCH ×2 (12:27→20:18)
[2021-08-10] MEDS: VITAMIN D (CHOLECALCIFEROL) 400 INTERNATIONAL UNITS TAB PO SCH (13:43)
[2021-08-10] MEDS ORDERED: NIFEdipine 30 MG XL TAB PO SCH (21:00)
[2021-08-11] MEDS: IBUPROFEN 800 MG TAB PO SCH ×2 (00:14→08:20)
[2021-08-11 02:00] VITALS: BP 142/70
[2021-08-11 05:38] VITALS: BP 135/80
[2021-08-11] MEDS: PRENATAL VITAMINS CHEWABLE TABLET PO SCH (08:18)
[2021-08-11] MEDS: VITAMIN D (CHOLECALCIFEROL) 400 INTERNATIONAL UNITS TAB PO SCH (08:18)
[2021-08-11] MEDS: FERROUS GLUCONATE 324 MG TAB PO SCH (08:18)
[2021-08-11] MEDS: DOCUSATE SODIUM 100MG CAPSULE PO SCH (08:18)
[2021-08-11 10:00] VITALS: BP 145/85
[2021-08-11] MEDS ORDERED: IBUP80TA PO (10:56)
[2021-08-11] MEDS ORDERED: OXYC1TAB23 PO (10:56)
== END 2021-08-11 11:53 | disposition home or self-care (01) | DRG 540 ==
LOC: M LDO 13:08 → M LDI 15:34 → M OBS 23:15
PROVIDERS: ADMIT Obstetrics & Gynecology; ATTEND Obstetrics & Gynecology
PROC: 0HB7XZZ Excision of Abdomen Skin, External Approach (ICD-10-PCS; 2021-08-09)
PROC: 10D00Z1 Extraction of Products of Conception, Low, Open Approach (ICD-10-PCS; principal; 2021-08-09 20:00)
DX: O69.1XX0 Labor and delivery complicated by cord around neck, with compression, not applicable or unspecified (principal); O10.92 Unspecified pre-existing hypertension complicating childbirth; O34.211 Maternal care for low transverse scar from previous cesarean delivery; Z3A.27 27 weeks gestation of pregnancy; O09.523 Supervision of elderly multigravida, third trimester; O35.1XX0 Maternal care for (suspected) chromosomal abnormality in fetus, not applicable or unspecified; O35.8XX0 Maternal care for other (suspected) fetal abnormality and damage, not applicable or unspecified; Z37.1 Single stillbirth; Z79.899 Other long term (current) drug therapy

== ENCOUNTER → 2022-05-18 | Outpatient (CLI) | payer OTHER ==
[~2022-05-18] MED LIST changes: +D400400C PO; +ECOT81TA5 PO; +FOLI0.4T5 PO; +FOLI20CA PO; -LABE100T4 PO; +LABE100T6 PO; +OXYC1TAB23 PO; +UNIS25TA3 PO
== END ==
LOC: M WHC 10:23
PROVIDERS: ATTEND Obstetrics & Gynecology
DX: Z12.31 Encounter for screening mammogram for malignant neoplasm of breast (principal)

== ENCOUNTER → 2022-05-18 | Outpatient (REF) | payer OTHER | LOC: M SFHCWAGY 17:22 | PROVIDERS: ATTEND Obstetrics & Gynecology | DX: Z12.4 Encounter for screening for malignant neoplasm of cervix (principal) ==

== ENCOUNTER → 2022-06-11 | Outpatient (REF) | payer OTHER ==
[2022-06-11 18:27] LABS: BASO % 0.6 % (0.0-1.0); EOS # 0.2 10^3/uL (0.0-0.5); EOS % 2.3 % (0.0-3.0); HEMATOCRIT 39.5 % (36.0-47.0); LYMPH # 1.8 10^3/uL (1.5-5.0); LYMPH % 27.3 % (24.0-44.0); MEAN CORPUSCULAR HEMOGLOBIN 26.6 pg (27.0-33.0); MEAN CORPUSCULAR HGB CONC 30.4 g/dl (32.0-36.5); MEAN CORPUSCULAR VOLUME 87.6 fl (80.0-96.0); MONO # 0.6 10^3/uL (0.0-0.8); MONO % 9.2 % (2.0-8.0); NEUTROPHILS % 59.4 % (36.0-66.0); PLATELET COUNT, AUTOMATED 382 10^3/uL (150-450); RED BLOOD COUNT 4.51 10^6/uL (4.00-5.40); WHITE BLOOD COUNT 6.6 10^3/uL (4.0-10.0)
[2022-06-11 18:59] LABS: BLOOD UREA NITROGEN 10 MG/DL (9-23); CALCIUM LEVEL 9.4 MG/DL (8.5-10.1); CARBON DIOXIDE LEVEL 29 MMOL/L (20-31); CHLORIDE LEVEL 103 MMOL/L (98-107); GLOMERULAR FILTRATION RATE > 60.0 (>58); GLUCOSE, FASTING 83 MG/DL (60-100); POTASSIUM SERUM 4.4 MMOL/L (3.5-5.1); SODIUM LEVEL 138 MMOL/L (136-145)
[2022-06-11 19:00] LABS: TOTAL 25(OH) VITAMIN D 22.1 NG/ML (20.0-100.0)
[2022-06-11 19:01] LABS: PROLACTIN 8.17 NG/ML; THYROID STIMULATING HORMONE 0.903 uIU/ML (0.55-4.78)
== END ==
LOC: M LAB REF 16:52
PROVIDERS: ATTEND Pediatrics
DX: I10 Essential (primary) hypertension (principal); E55.9 Vitamin D deficiency, unspecified; R51.9 Headache, unspecified; E78.5 Hyperlipidemia, unspecified

== ENCOUNTER → 2022-06-14 | Outpatient (CLI) | payer OTHER | LOC: M WUC 13:48 | PROVIDERS: ATTEND Pediatrics | DX: M54.2 Cervicalgia (principal) ==

== ENCOUNTER → 2022-07-01 | Outpatient (CLI) | payer OTHER | LOC: M PLARAD 09:48 | PROVIDERS: ATTEND Pediatrics | DX: R51.9 Headache, unspecified (principal); M54.2 Cervicalgia; J34.1 Cyst and mucocele of nose and nasal sinus; J34.89 Other specified disorders of nose and nasal sinuses ==

== ENCOUNTER 2022-07-09 10:07 | Outpatient (RCR) | payer OTHER | END 2022-07-11 | LOC: M PT 10:07 | PROVIDERS: ATTEND Pediatrics | DX: M54.2 Cervicalgia (principal) ==

== ENCOUNTER → 2022-07-26 | Outpatient (REF) | payer OTHER | LOC: M LAB REF 16:31 | PROVIDERS: ATTEND Pediatrics | DX: N92.5 Other specified irregular menstruation (principal) ==

== ENCOUNTER 2022-08-06 10:53 | Outpatient (RCR) | payer OTHER | END 2022-08-11 | LOC: M PT 10:53 | PROVIDERS: ATTEND Pediatrics | DX: M54.2 Cervicalgia (principal) ==

== ENCOUNTER 2022-08-30 15:15 | Outpatient (RCR) | payer OTHER | END 2022-09-10 | LOC: M PT 15:15 | PROVIDERS: ATTEND Pediatrics | DX: M54.2 Cervicalgia (principal) ==

== ENCOUNTER → 2023-06-24 | Outpatient (REF) | payer OTHER ==
[2023-06-24 17:56] LABS: BASO % 0.6 % (0.0-1.0); EOS # 0.2 10^3/uL (0.0-0.5); EOS % 3.3 % (0.0-3.0); HEMOGLOBIN 12.2 g/dl (12.0-15.5); LYMPH % 38.7 % (24.0-44.0); MEAN CORPUSCULAR HEMOGLOBIN 26.6 pg (27.0-33.0); MEAN CORPUSCULAR HGB CONC 31.3 g/dl (32.0-36.5); MEAN CORPUSCULAR VOLUME 85.2 fl (80.0-96.0); MONO # 0.4 10^3/uL (0.0-0.8); MONO % 8.3 % (2.0-8.0); NEUTROPHILS # 2.5 10^3/uL (1.5-8.5); NEUTROPHILS % 48.9 % (36.0-66.0); PLATELET COUNT, AUTOMATED 391 10^3/uL (150-450); RED BLOOD COUNT 4.58 10^6/uL (4.00-5.40); WHITE BLOOD COUNT 5.2 10^3/uL (4.0-10.0)
[2023-06-24 18:23] LABS: THYROID STIMULATING HORMONE 1.289 uIU/ML (0.55-4.78)
[2023-06-24 18:24] LABS: BLOOD UREA NITROGEN 7 MG/DL (9-23); CALCIUM LEVEL 9.3 MG/DL (8.5-10.1); CARBON DIOXIDE LEVEL 29 MMOL/L (20-31); CHLORIDE LEVEL 103 MMOL/L (98-107); CREATININE FOR GFR 0.72 MG/DL (0.55-1.30); FOLLICLE STIMULATING HORMONE 28.2 mIU/ML; GLOMERULAR FILTRATION RATE > 60.0 (>58); GLUCOSE, FASTING 86 MG/DL (60-100); LUTEINIZING HORMONE 12.8 mIU/ML; POTASSIUM SERUM 3.8 MMOL/L (3.5-5.1); SODIUM LEVEL 139 MMOL/L (136-145)
[2023-06-24 18:59] LABS: CREATININE, URINE 20.1 MG/DL; MALB URINE SIEMENS < 3.0 MG/L; MAU/CREAT RATIO 14.9 MCG/MG (0.0-30.0)
== END ==
LOC: M LAB REF 16:39
PROVIDERS: ATTEND Pediatrics
DX: I10 Essential (primary) hypertension (principal); N92.6 Irregular menstruation, unspecified

== ENCOUNTER → 2023-07-13 | Outpatient (CLI) | payer OTHER | LOC: M WHC 13:00 | PROVIDERS: ATTEND Pediatrics | DX: Z12.31 Encounter for screening mammogram for malignant neoplasm of breast (principal) ==

== ENCOUNTER → 2024-02-06 | Outpatient (REF) | payer OTHER ==
[~2024-02-06] MED LIST changes: -NIFE10CA2 PO; +NIFE10CA61 PO; +ONDA-282 PO; -ONDA4TAB6 PO
[2024-02-06 19:24] LABS: BLOOD UREA NITROGEN 13 MG/DL (9-23); CALCIUM LEVEL 9.4 MG/DL (8.5-10.1); CARBON DIOXIDE LEVEL 27 MMOL/L (20-31); CHLORIDE LEVEL 102 MMOL/L (98-107); GLOMERULAR FILTRATION RATE > 60.0 (>58); GLUCOSE, FASTING 113 MG/DL (60-100); POTASSIUM SERUM 3.6 MMOL/L (3.5-5.1); SODIUM LEVEL 136 MMOL/L (136-145)
[2024-02-06 19:27] LABS: TESTOSTERONE 26 NG/DL (14-76)
== END ==
LOC: M LAB REF 16:49
PROVIDERS: ATTEND Pediatrics
DX: L68.0 Hirsutism (principal)

== ENCOUNTER → 2024-11-27 | Outpatient (CLI) | payer OTHER ==
[~2024-11-27] MED LIST changes: -AMBI5TAB PO; -FOLI0.4T5 PO; +FOLI400T2 PO; +ZOLP-532 PO
== END ==
LOC: M WHC 06:40
PROVIDERS: ATTEND Pediatrics
DX: Z12.31 Encounter for screening mammogram for malignant neoplasm of breast (principal); R92.313 Mammographic fatty tissue density, bilateral breasts

== ENCOUNTER → 2024-12-17 | Outpatient (REF) | payer OTHER ==
[2024-12-17 18:24] LABS: BASO # 0.0 10^3/uL (0.0-0.2); BASO % 0.4 % (0.0-1.0); EOS # 0.1 10^3/uL (0.0-0.5); EOS % 0.6 % (0.0-3.0); LYMPH # 2.3 10^3/uL (1.5-5.0); LYMPH % 28.1 % (24.0-44.0); MONO # 0.7 10^3/uL (0.0-0.8); MONO % 8.9 % (2.0-8.0); NEUTROPHILS # 5.0 10^3/uL (1.5-8.5); NEUTROPHILS % 61.9 % (36.0-66.0); PLATELET COUNT, AUTOMATED 434 10^3/uL (150-450)
[2024-12-17 18:51] LABS: ESTIMATED AVERAGE GLUCOSE 111.0 MG/DL (60-110)
[2024-12-17 18:52] LABS: CREATININE, URINE 115.6 MG/DL
[2024-12-17 18:53] LABS: CALCIUM LEVEL 9.8 MG/DL (8.5-10.1); CARBON DIOXIDE LEVEL 23.0 MMOL/L (20-31); CHLORIDE LEVEL 95.0 MMOL/L (98-107); CHOLESTEROL LEVEL 257.0 MG/DL (<200); CHOLESTEROL RISK RATIO 3.58 (<5); CREATININE FOR GFR 0.92 MG/DL (0.55-1.30); GLOMERULAR FILTRATION RATE 77.3 (>58); LDL CHOLESTEROL 171.0 MG/DL (<100); NON-HDL-C 185.4 MG/DL; POTASSIUM SERUM 3.5 MMOL/L (3.5-5.1); SODIUM LEVEL 135.0 MMOL/L (136-145); TRIGLYCERIDES LEVEL 72.0 MG/DL (<150)
[2024-12-17 18:53] LABS: MALB URINE SIEMENS < 3.0 MG/L
== END ==
LOC: M LAB REF 16:21
PROVIDERS: ATTEND Pediatrics
DX: I10 Essential (primary) hypertension (principal); Z68.33 Body mass index [BMI] 33.0-33.9, adult; D64.9 Anemia, unspecified

== ENCOUNTER → 2025-01-28 | Outpatient (REF) | payer OTHER ==
[2025-01-28 19:15] LABS: CALCIUM LEVEL 9.7 MG/DL (8.5-10.1); CARBON DIOXIDE LEVEL 30.0 MMOL/L (20-31); CHLORIDE LEVEL 95.0 MMOL/L (98-107); CREATININE FOR GFR 1.02 MG/DL (0.55-1.30); GLOMERULAR FILTRATION RATE 68.3 (>58); POTASSIUM SERUM 4.0 MMOL/L (3.5-5.1); SODIUM LEVEL 136.0 MMOL/L (136-145)
== END ==
LOC: M LAB REF 16:23
PROVIDERS: ATTEND Pediatrics
DX: I10 Essential (primary) hypertension (principal)